=== PATIENT | male | born 1945 | race Hispanic/Latino ===

== ENCOUNTER 2022-08-13 23:45 | Emergency (ER) | payer OTHER ==
--- OUTSIDE RECORDS SUMMARY | 2022-08-13 23:49 | XMS REPORT | Continuity of Care Document ---
:1945 Author Organization [facility] t Address [address] [place] [address] [address] [place] [address] Care Team Providers Name Role Phone Ciro Ameya Marie Primary Care Physician Crista Farooq Attending Clinician Unavailable Sangita SUAREZ Attending Clinician Unavailable MARIA LUISA ZENDEJAS Attending Clinician Unavailable Maria Luisa Zendejas MD Attending Clinician Jefry Horowitz Attending Clinician Payers Payer Name Policy Type Policy Number Effective Date Expiration Date Emily matthewbc RUBINA/HE [id number] 2022 MEDICARE 00:00:00 ADVANTAGE MEDICARE MB [id number] [facility] MEDICARE C1 [id number] [facility] fabiana - [facility] HUMANA MEDICARE C1 [id number] [facility] [id number] [facility] fabiana [facility] Problems Condition Condition Condition Status Onset Resolution Last Treating Co mments Source Name Details Category Date Date Treatment Clinician Date Alzheimer' Alzheimer' Disease Active U nivers s disease s disease 07-30 ity of 00:00: [place] 00 Medical Branch Anxiety Anxiety Disease Active Univers 07-30 ity of 00:00: [place] 00 Medical Branch Gastroesop Gastroesop Disease Active 2023-0 U nivers hageal hageal 07-30 ity of reflux reflux 00:00: [place] disease disease 00 Medical without without Branch esophagiti esophagiti s s History of History of Disease Active U nivers malignant malignant 07-30 ity of neoplasm neoplasm 00:00: [place] of colon of colon 00 Medica l Branch Hyperlipid Hyperlipid Disease Active U nivers emjess emia 07-30 ity of 00:00: [place] 00 Medical Branch 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 07-30 it y of anemia, anemia, 00:00: [place] unspecifie unspecifie 00 Me dical d iron d iron Branch 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 00:00: [place] disease disease 00 Medical Branch Type 2 Type 2 Disease Active Univers diabetes diabetes 07-30 ity of mellitus mellitus 00:00: [place] without without 00 Medical complicati complicati Br anch on, on, without without long-term long-term current current use of use of insulin insulin Primary Primary Problem Active 2016-032022-05-23 Mn sudheer degenerati degenerati 0-13 14:35:59 l ve ve 00:00: [place] dementia dementia 00 of the of the Alzheimer Alzheimer type, type, senile senile onset onset (disorder) (disorder) Active 01/09/2017 Problem 05/23/2022 [facility] Hyperlipid Hyperlipi Problem Active 2022-05-23 Elisha emjess demia 11-28 14:35:59 l (disorder) (disorder) 00:00: He rmann Active 00 11/28/2016 Problem 05/23/2022 [facility] Type II Type II Problem Active 2022-05-23 Mn moria diabetes diabetes 11-28 14:35:59 l mellitus mellitus 00:00: [place] n without without 00 complicati complicati on on (disorder) (disorder) Active 11/28/2016 Problem 05/23/2022 [facility] Labile Labile Problem Active 2022-05-[address] [facility] affect affect 14:35:59 l (finding) (finding) Herm shiva Active Problem 05/23/2022 [facility] Insomnia Insomnia Problem Active 2022-05-23 Memoria (disorder) (disorder) 14:35:59 l Active [place] Problem 05/23/2022 [facility] Benign Colon Problem Common neoplasm polyps [facility] of colon - [facility] Hydrocele Hydrocele Problem Com mon [facility] Hypertensi HTN Problem Commo n on (hypertens Spirit ion) - [facility] Type 2 Diabetes Problem Common diabetes mellitus Spirit mellitus type II, - [facility] well controlled [facility] Anemia Anemia Problem [facility] Sexual Sexual Problem Common dysfunctio dysfunctio Sp fabiana n n - [facility] Spermatoce Spermatoce Problem C ommon le le of Spirit epididymis - [facility] Dementia Dementia Problem Commo n in other Spirit diseases - [facility] classified [facility] without Medical behavioral Center disturbanc e Allergic Allergic Problem Commo n rhinitis rhinitis, Spiri t [facility]specifie [facility] Center d trigger [id number] Type 2 Problem Common diabetes Spirit mellitus - [facility] with [facility] chronic Medical kidney Center disease [id number] Leukocytos Problem Co mmon is, Spirit unspecifie - CHI d type [facility] Allergies, Adverse Reactions, Alerts Allergy Allergy Status Severity Reaction(s) Onset Inactive Treating Comm ents Source Name Type Date Date Clinician PENICILL DRUG Active Unknown-Cmnt Un smiley IN INGREDI 07-30 ity of 00:00: [place] 00 Medical Branch Penicill Propensi Active Unknown - Uni vers in ty to See comments 07-30 ity of adverse 00:00: [place] reaction 00 Medical s Branch Penicill Penicill Active Unknown Commo n in in Spirit - [facility] amoxicil amoxicil Active Unknown Commo n tesfaye tesfaye [facility] penicill penicill Active Memori a ins ins l Kd Social History Social Habit Start Date Stop Date Quantity Comments Source History of Tobacco [facility] Use [facility] Exposure to 2022-07-20 2022-07-[address] [facility] SARS-CoV-2 (event) 00:00:00 20:55:00 Medica l Branch Sex Ass[birth year] At [birth year] [facility] 00:00:00 00:00:00 Medical Branch Smoking Status Start Date Stop Date Source Tobacco smoking [facility] xa consumption unknown Medical Bran Tobacco smoking status 2022-05-20 21:25:18 2022-05-20 Memor kae Ruizann 21:25:18 Never Smoker [facility] nter Medications Ordered Filled Start Stop Current Ordering Indication Dosage Frequency Signature Comments Components Source Medication Medication Date Date Medication? Clinician (SIG) Name Name cetirizine Yes 10mg Take 1 Unive rs 10 mg 5-03 tablet by ity of tablet 20:54: mouth in [place] [address] the Medical morning. Branch atorvastati Yes 20mg Take 1 Univ ers n 20 mg 5-03 tablet by ity of tablet 20:54: mouth at [place] [address] bedtime. Medical Branch memantine 0 Yes 10mg Take 1 Univer s 10 mg 5-03 tablet by ity of tablet 20:54: mouth in [place] [address] the Medical morning. Branch mirtazapine Yes 30mg Take 2 Univ ers 15 mg 5-03 tablets by ity of tablet 20:54: mouth at [place] [address] bedtime. Medical Branch pioglitazon Yes 30mg Take 1 Univ ers e 30 mg 5-03 tablet by ity of tablet 20:54: mouth in [place] [address] the Medical morning. Branch QUEtiapine 2022-0 Yes 50mg Take 1 Unive rs 50 mg 5-03 tablet by ity of tablet 20:54: mouth in [place] [address] the Medical morning Branch and 1 tablet in the evening. ferrous 2022-0 Yes 325mg Take 1 Univers sulfate 325 5-03 tablet by ity of mg (65 mg 20:54: mouth in [facility] iron) 21 the Medical tablet morning Branch and 1 tablet in the evening. donepeziL 2022-0 Yes 10mg Take 1 Univer s 10 mg 5-03 tablet by ity of tablet 20:54: mouth in [place] [address] the Medical morning. Branch lisinopriL 2022-0 Yes 2.5mg Take 1 Univ ers 2.5 mg 5-03 tablet by ity of tablet 20:54: mouth in [place] 21 the Medical morning. Branch mirtazapine 0 Yes 30 mg = 2 M emoria 15 mg oral 2-21 tab, PO, l tablet 22:24: Bedtime, # Ladan nn 00 60 tab, 2 Refill(s), Pharmacy: [facility] cy #[id number], 165.1, cm, 05/20/22 15:40:00 [employer] ADMINISTRATOR, Height, 55.909, kg, 05/20/22 15:40:00 COMMER[employer] PROPERTY ADMINISTRATOR, Weight mirtazapine 2022-0 Yes 30 mg = 2 M emoria 15 mg oral 2-21 tab, PO, l tablet 22:24: Bedtime, # Ladan nn 00 60 tab, 2 Refill(s), Pharmacy: [facility] #[id number], 165.1, cm, 05/20/22 15:40:00 COMMER[employer] PROPERTY ADMINISTRATOR, Height, 55.909, kg, 05/20/22 15:40:00 COMMERCIAL PROPERTY ADMINISTRATOR, Weight Namenda 10 2022-0 Yes 10 mg = 1 Me moria mg oral 2-21 tab, PO, l tablet 22:23: BID, # 60 [place] 00 tab, 3 Refill(s), Pharmacy: [facility] cy #[id number], 165.1, cm, 05/20/22 15:40:00 COMMERCIAL PROPERTY ADMINISTRATOR, Height, 55.909, kg, 05/20/22 15:40:00 COMMERCIAL PROPERTY ADMINISTRATOR, Weight Namenda 10 2022-0 Yes 10 mg = 1 Me moria mg oral 2-21 tab, PO, l tablet 22:23: BID, # 60 Kavon n 00 tab, 3 Refill(s), Pharmacy: [facility] cy #[id number], 165.1, cm, 05/20/22 15:40:00 COMMERCIAL PROPERTY ADMINISTRATOR, Height, 55.909, kg, 05/20/22 15:40:00 COMMERCIAL PROPERTY ADMINISTRATOR, Weight Aricept 10 2022-0 Yes 10 mg = 1 Me moria mg oral 2-21 tab, PO, l tablet 22:22: Daily, # [place] 00 30 tab, 3 Refill(s), Pharmacy: [facility] cy #[id number], 165.1, cm, 05/20/22 15:40:00 COMMERCIAL PROPERTY ADMINISTRATOR, Height, 55.909, kg, 05/20/22 15:40:00 COMMERCIAL PROPERTY ADMINISTRATOR, Weight Aricept 10 2022-0 Yes 10 mg = 1 Me moria mg oral 2-21 tab, PO, l tablet 22:22: Daily, # Kd 00 30 tab, 3 Refill(s), Pharmacy: [facility] #[id number], 165.1, cm, 05/20/22 15:40:00 COMMERCIAL PROPERTY ADMINISTRATOR, Height, 55.909, kg, 05/20/22 15:40:00 COMMERCIAL PROPERTY ADMINISTRATOR, Weight Depakote 0 Yes 500 mg = 1 Mem oria 500 mg oral 2-21 tab, PO, l enteric 22:21: Bedtime, # Herm shiva coated 00 30 tab, 3 tablet Refill(s), Pharmacy: [facility] #[id number], 165.1, cm, 05/20/22 15:40:00 COMMER[employer] PROPERTY ADMINISTRATOR, Height, 55.909, kg, 05/20/22 15:40:00 COMMERCIAL PROPERTY ADMINISTRATOR, Weight Depakote 0 Yes 500 mg = 1 Mem oria 500 mg oral 2-21 tab, PO, l enteric 22:21: Bedtime, # Herm shiva coated 00 30 tab, 3 tablet Refill(s), Pharmacy: [facility] #[id number], 165.1, cm, 05/20/22 15:40:00 COMMERCIAL PROPERTY ADMINISTRATOR, Height, 55.909, kg, 05/20/22 15:40:00 COMMERCIAL PROPERTY ADMINISTRATOR, Weight SEROquel 50 2021-03 Yes 50 mg = 1 M emoria mg oral 0-24 tab, PO, l tablet 18:37: BID, # 180 Ladan nn 00 tab, 3 Refill(s), Pharmacy: [facility] #[id number], 165.1, cm, 10/17/21 14:51:00 CDT, Height, 63.693, kg, 10/17/21 14:51:00 CDT, Weight SEROquel 50 2021-03 Yes 50 mg = 1 M emoria mg oral 0-24 tab, PO, l tablet 18:37: BID, # 180 Ladan nn 00 tab, 3 Refill(s), Pharmacy: [facility] #[id number], 165.1, cm, 10/17/21 14:51:00 CDT, Height, 63.693, kg, 10/17/21 14:51:00 CDT, Weight mirtazapine 0 Yes = 1 tab, Me moria 15 mg oral 7-21 PO, l tablet 20:51: Bedtime, # Ladan nn 00 90 tab, 2 Refill(s), Pharmacy: [facility] STORE [id number], 165.1, cm, 10/17/21 14:51:00 CDT, Height, 63.693, kg, 10/17/21 14:51:00 CDT, Weight mirtazapine 0 Yes = 1 tab, Me moria 15 mg oral 7-21 PO, l tablet 20:51: Bedtime, # [place] nn 00 90 tab, 2 Refill(s), Pharmacy: [facility] STORE [id number], 165.1, cm, 10/17/21 14:51:00 CDT, Height, 63.693, kg, 10/17/21 14:51:00 CDT, Weight Remeron 15 2021-0 No 15 mg = 1 Me moria mg oral 7-21 tab, PO, l tablet 20:05: Bedtime, # [place] nn 00 30 tab, 3 Refill(s), Pharmacy: [facility] #[id number], 165.1, cm, 10/17/21 14:51:00 CDT, Height, 63.693, kg, 10/17/21 14:51:00 CDT, Weight Remeron 15 2021-0 No 15 mg = 1 Me moria mg oral 7-21 tab, PO, l tablet 20:05: Bedtime, # [place] nn 00 30 tab, 3 Refill(s), Pharmacy: [facility] #[id number], 165.1, cm, 10/17/21 14:51:00 CDT, Height, 63.693, kg, 10/17/21 14:51:00 CDT, Weight Remeron 15 2021-0 No 15 mg = 1 Me moria mg oral 7-21 tab, PO, l tablet 20:05: Bedtime, # [place] nn 00 30 tab, 3 Refill(s), Pharmacy: [facility] #[id number], 165.1, cm, 10/17/21 14:51:00 CDT, Height, 63.693, kg, 10/17/21 14:51:00 CDT, Weight Depakote ER 2022-0 Yes 500 mg = 1 Memoria 500 mg oral 5-09 tab, PO, l tablet, 15:28: Bedtime, # Herm shiva extended 00 90 tab, 3 release Refill(s), Pharmacy: [facility] #[id number], 167.64, cm, 07/12/21 14:20:00 CDT, Height, 61.818, kg, 07/12/21 14:20:00 CDT, Weight Depakote ER 2022-0 Yes 500 mg = 1 Memoria 500 mg oral 5-09 tab, PO, l tablet, 15:28: Bedtime, # Herm shiva extended 00 90 tab, 3 release Refill(s), Pharmacy: [facility] #[id number], 167.64, cm, 07/12/21 14:20:00 CDT, Height, 61.818, kg, 07/12/21 14:20:00 CDT, Weight Depakote ER 2022-0 Yes 500 mg = 1 Memoria 500 mg oral 5-09 tab, PO, l tablet, 15:28: Bedtime, # Herm shiva extended 00 90 tab, 3 release Refill(s), Pharmacy: [facility] #[id number], 167.64, cm, 07/12/21 14:20:00 CDT, Height, 61.818, kg, 07/12/21 14:20:00 CDT, Weight Depakote ER 2022-0 Yes 500 mg = 1 Memoria 500 mg oral 4-15 tab, PO, l tablet, 22:50: Bedtime, # Herm shiva extended 00 30 tab, 3 release Refill(s), Pharmacy: [facility] #[id number], 167.64, cm, 07/12/21 14:20:00 CDT, Height, 61.818, kg, 07/12/21 14:20:00 CDT, Weight Depakote ER 2022-0 Yes 500 mg = 1 Memoria 500 mg oral 4-15 tab, PO, l tablet, 22:50: Bedtime, # Herm shiva extended 00 30 tab, 3 release Refill(s), Pharmacy: [facility] #[id number], 167.64, cm, 07/12/21 14:20:00 CDT, Height, 61.818, kg, 07/12/21 14:20:00 CDT, Weight Depakote ER 0 Yes 500 mg = 1 Memoria 500 mg oral 4-15 tab, PO, l tablet, 22:50: Bedtime, # Herm shiva extended 00 30 tab, 3 release Refill(s), Pharmacy: [facility] #[id number], 167.64, cm, 07/12/21 14:20:00 CDT, Height, 61.818, kg, 07/12/21 14:20:00 CDT, Weight SEROquel 50 0 No 50 mg = 1 M emoria mg oral 3-04 tab, PO, l tablet 17:53: BID, # 180 Ladan nn 00 tab, 3 Refill(s), Pharmacy: [facility] #[id number], 170.18, cm, 05/30/21 13:50:00 [employer] ADMINISTRATOR, Height, 61.818, kg, 05/30/21 13:50:00 COMMERCIAL PROPERTY ADMINISTRATOR, Weight SEROquel 50 0 No 50 mg = 1 M emoria mg oral 3-04 tab, PO, l tablet 17:53: BID, # 180 Ladan nn 00 tab, 3 Refill(s), Pharmacy: [facility] #[id number], 170.18, cm, 05/30/21 13:50:00 COMMERCIAL PROPERTY ADMINISTRATOR, Height, 61.818, kg, 05/30/21 13:50:00 COMMERCIAL PROPERTY ADMINISTRATOR, Weight SEROquel 50 2021-0 No 50 mg = 1 M emoria mg oral 3-04 tab, PO, l tablet 17:53: BID, # 180 Ladan nn 00 tab, 3 Refill(s), Pharmacy: [facility] #[id number], 170.18, cm, 05/30/21 13:50:00 COMMERCIAL PROPERTY ADMINISTRATOR, Height, 61.818, kg, 05/30/21 13:50:00 COMMERCIAL PROPERTY ADMINISTRATOR, Weight quetiapine 0 No 50 mg = 1 Me moria 50 MG Oral 3-03 tab, PO, l Tablet 20:14: BID, X 30 Kavon n [Seroquel] 00 day, # 60 tab, 2 Refill(s), Pharmacy: [facility] #[id number], 170.18, cm, 05/30/21 13:50:00 COMMERCIAL PROPERTY ADMINISTRATOR, Height, 61.818, kg, 05/30/21 13:50:00 COMMERCIAL PROPERTY ADMINISTRATOR, Weight quetiapine 2021-0 No 50 mg = 1 Me moria 50 MG Oral 3-03 tab, PO, l Tablet 20:14: BID, X 30 [place] n [Seroquel] 00 day, # 60 tab, 2 Refill(s), Pharmacy: [facility] #[id number], 170.18, cm, 05/30/21 13:50:00 COMMERCIAL PROPERTY ADMINISTRATOR, Height, 61.818, kg, 05/30/21 13:50:00 COMMERCIAL PROPERTY ADMINISTRATOR, Weight quetiapine 2021-0 No 50 mg = 1 Me moria 50 MG Oral 3-03 tab, PO, l Tablet 20:14: BID, X 30 [place] n [Seroquel] 00 day, # 60 tab, 2 Refill(s), Pharmacy: [facility] #[id number], 170.18, cm, 05/30/21 13:50:00 COMMERCIAL PROPERTY ADMINISTRATOR, Height, 61.818, kg, 05/30/21 13:50:00 COMMERCIAL PROPERTY ADMINISTRATOR, Weight quetiapine 2021-0 No 50 mg = 1 Me moria 50 MG Oral 2-10 tab, PO, l Tablet 16:26: Bedtime, # Ladan nn [Seroquel] 00 30 tab, 2 Refill(s), Pharmacy: [facility] #[id number], 165.1, cm, 03/13/21 14:42:00 COMMERCIAL PROPERTY ADMINISTRATOR, Height, 61.818, kg, 03/13/21 14:42:00 COMMERCIAL PROPERTY ADMINISTRATOR, Weight quetiapine 2021-0 No 50 mg = 1 Me moria 50 MG Oral 2-10 tab, PO, l Tablet 16:26: Bedtime, # Ladan nn [Seroquel] 00 30 tab, 2 Refill(s), Pharmacy: [facility] #[id number], 165.1, cm, 03/13/21 14:42:00 COMMERCIAL PROPERTY ADMINISTRATOR, Height, 61.818, kg, 03/13/21 14:42:00 COMMERCIAL PROPERTY ADMINISTRATOR, Weight quetiapine 2-0 No 50 mg = 1 Me moria 50 MG Oral 2-10 tab, PO, l Tablet 16:26: Bedtime, # Ladan nn [Seroquel] 00 30 tab, 2 Refill(s), Pharmacy: [facility] #[id number], 165.1, cm, 03/13/21 14:42:00 COMMERCIAL PROPERTY ADMINISTRATOR, Height, 61.818, kg, 03/13/21 14:42:00 COMMERCIAL PROPERTY ADMINISTRATOR, Weight Mirtazapine 2020-03 Yes 15 mg = 1 M emoria 15 MG Oral 2-15 tab, PO, l Tablet 21:11: Bedtime, # Ladan leary [Remeron] 00 90 tab, 2 Refill(s), Pharmacy: [facility] #[id number], 165.1, cm, 03/13/21 14:42:00 COMMERCIAL PROPERTY ADMINISTRATOR, Height, 61.818, kg, 03/13/21 14:42:00 COMMERCIAL PROPERTY ADMINISTRATOR, Weight Mirtazapine 2020-03 Yes 15 mg = 1 M emoria 15 MG Oral 2-15 tab, PO, l Tablet 21:11: Bedtime, Kacey leary [Remeron] 00 90 tab, 2 Refill(s), Pharmacy: [facility] #[id number], 165.1, cm, 03/13/21 14:42:00 COMMERCIAL PROPERTY ADMINISTRATOR, Height, 61.818, kg, 03/13/21 14:42:00 COMMERCIAL PROPERTY ADMINISTRATOR, Weight Mirtazapine 2020-03 Yes 15 mg = 1 M emoria 15 MG Oral 2-15 tab, PO, l Tablet 21:11: Bedtime, Kacey leary [Remeron] 00 90 tab, 2 Refill(s), Pharmacy: [facility] #[id number], 165.1, cm, 03/13/21 14:42:00 COMMERCIAL PROPERTY ADMINISTRATOR, Height, 61.818, kg, 03/13/21 14:42:00 COMMERCIAL PROPERTY ADMINISTRATOR, Weight Namzaric 28 2020-03 Yes 1 cap, PO, Memoria mg-10 mg 2-15 Daily, # l oral 21:00: 90 cap, 3 Kd capsule, 00 Refill(s), extended Pharmacy: release [facility] #[id number], 165.1, cm, 03/13/21 14:42:00 COMMERCIAL PROPERTY ADMINISTRATOR, Height, 61.818, kg, 03/13/21 14:42:00 COMMERCIAL PROPERTY ADMINISTRATOR, Weight Dextrometho 2020-03 Yes 1 cap, PO, Memoria rphan 2-15 Q12H, # l Hydrobromid 21:00: 180 cap, 1 Kd e 20 MG / 00 Refill(s), Quinidine Pharmacy: Sulfate [facility] #[id number], Capsule 165.1, cm, [Nuedexta] 03/13/21 14:42:00 COMMERCIAL PROPERTY ADMINISTRATOR, Height, 61.818, kg, 03/13/21 14:42:00 COMMERCIAL PROPERTY ADMINISTRATOR, Weight 24 HR 2020-03 Yes 1 cap, PO, Memori a Donepezil 2-15 Daily, # l hydrochlori 21:00: 90 cap, 3 H ermann de 10 MG / 00 Refill(s), Memantine Pharmacy: hydrochlori [facility] 28 [facility] #[id number], Extended 165.1, cm, Release 03/13/21 Oral 14:42:00 Capsule COMM[employer] ADMINISTRATOR, [Namzaric] Height, 61.818, kg, 03/13/21 14:42:00 COMMERCIAL PROPERTY ADMINISTRATOR, Weight Sertraline 2020-03 Yes 50 mg = 1 Me moria 50 MG Oral 2-15 tab, PO, l Tablet 21:00: Daily, # [place] [Zoloft] 00 90 tab, 3 Refill(s), Pharmacy: [id number], 165.1, cm, 03/13/21 14:42:00 COMMERCIAL PROPERTY ADMINISTRATOR, Height, 61.818, kg, 03/13/21 14:42:00 COMMERCIAL PROPERTY ADMINISTRATOR, Weight Namzaric 28 2020-03 Yes 1 cap, PO, Memoria mg-10 mg 2-15 Daily, # l oral 21:00: 90 cap, 3 [place] capsule, 00 Refill(s), extended Pharmacy: release [id number], 165.1, cm, 03/13/21 14:42:00 COMMERCIAL PROPERTY ADMINISTRATOR, Height, 61.818, kg, 03/13/21 14:42:00 COMMERCIAL PROPERTY ADMINISTRATOR, Weight Dextrometho 2020-03 Yes 1 cap, PO, Memoria rphan 2-15 Q12H, # l Hydrobromid 21:00: 180 cap, 1 [place] e 20 MG / 00 Refill(s), Quinidine Pharmacy: S[facility] #[id number], Capsule 165.1, cm, [Nuedexta] 03/13/21 14:42:00 COMMERCIAL PROPERTY ADMINISTRATOR, Height, 61.818, kg, 03/13/21 14:42:00 COMMERCIAL PROPERTY ADMINISTRATOR, Weight 24 HR 2020-03 Yes 1 cap, PO, Memori a Donepezil 2-15 Daily, # l hydrochlori 21:00: 90 cap, 3 H ermann de 10 MG / 00 Refill(s), Memantine Pharmacy: hydrochlori [facility] 28 [facility] #[id number], Extended 165.1, cm, Release 03/13/21 Oral 14:42:00 Capsule COMM[employer]ERTY ADMINISTRATOR, [Namzaric] Height, 61.818, kg, 03/13/21 14:42:00 COMMERCIAL PROPERTY ADMINISTRATOR, Weight Sertraline 2020-03 Yes 50 mg = 1 Me moria 50 MG Oral 2-15 tab, PO, l Tablet 21:00: Daily, # [place] [Zoloft] 00 90 tab, 3 Refill(s), Pharmacy: [id number], 165.1, cm, 03/13/21 14:42:00 COMMERCIAL PROPERTY ADMINISTRATOR, Height, 61.818, kg, 03/13/21 14:42:00 COMMERCIAL PROPERTY ADMINISTRATOR, Weight Dextrometho 2020-03 Yes 1 cap, PO, Memoria rphan 2-15 Q12H, # l Hydrobromid 21:00: 180 cap, 1 Kd e 20 MG / 00 Refill(s), Quinidine Pharmacy: S[facility] #[id number], Capsule 165.1, cm, [Nuedexta] 03/13/21 14:42:00 COMMERCIAL PROPERTY ADMINISTRATOR, Height, 61.818, kg, 03/13/21 14:42:00 COMMERCIAL PROPERTY ADMINISTRATOR, Weight 24 HR 2020-03 Yes 1 cap, PO, Memori a Donepezil 2-15 Daily, # l hydrochlori 21:00: 90 cap, 3 H ermann de 10 MG / 00 Refill(s), Memantine Pharmacy: hydrochlori [facility] 28 [facility] #[id number], Extended 165.1, cm, Release 03/13/21 Oral 14:42:00 Capsule COMMER[employer] PROPERTY ADMINISTRATOR, [Namzaric] Height, 61.818, kg, 03/13/21 14:42:00 COMMERCIAL PROPERTY ADMINISTRATOR, Weight Sertraline 2020-03 Yes 50 mg = 1 Me moria 50 MG Oral 2-15 tab, PO, l Tablet 21:00: Daily, # Kd [Zoloft] 00 90 tab, 3 Refill(s), Pharmacy: [facility] #[id number], 165.1, cm, 03/13/21 14:42:00 COMMERCIAL PROPERTY ADMINISTRATOR, Height, 61.818, kg, 03/13/21 14:42:00 COMMERCIAL PROPERTY ADMINISTRATOR, Weight Sertraline 1-0 Yes 25 mg = 1 Me moria 25 MG Oral 6-09 tab, PO, l Tablet 16:19: Daily, # Kd [Zoloft] 00 90 tab, 3 Refill(s), Pharmacy: [facility] #[id number], 167.64, cm, 08/08/20 16:03:00 CDT, Height, 67.273, kg, 08/08/20 16:03:00 CDT, Weight Sertraline 1-0 Yes 25 mg = 1 Me moria 25 MG Oral 6-09 tab, PO, l Tablet 16:19: Daily, # Kd [Zoloft] 00 90 tab, 3 Refill(s), Pharmacy: [facility] #[id number], 167.64, cm, 08/08/20 16:03:00 CDT, Height, 67.273, kg, 08/08/20 16:03:00 CDT, Weight Sertraline 1-0 Yes 25 mg = 1 Me moria 25 MG Oral 6-09 tab, PO, l Tablet 16:19: Daily, # Kd [Zoloft] 00 90 tab, 3 Refill(s), Pharmacy: [facility] #[id number], 167.64, cm, 08/08/20 16:03:00 CDT, Height, 67.273, kg, 08/08/20 16:03:00 CDT, Weight Sertraline 2021-0 Yes 25 mg = 1 Me moria 25 MG Oral 5-12 tab, PO, l Tablet 21:47: Daily, # Kd [Zoloft] 00 30 tab, 4 Refill(s), Pharmacy: [facility] #[id number], 167.64, cm, 08/08/20 16:03:00 CDT, Height, 67.273, kg, 08/08/20 16:03:00 CDT, Weight Sertraline 2021-0 Yes 25 mg = 1 Me moria 25 MG Oral 5-12 tab, PO, l Tablet 21:47: Daily, # [place] [Zoloft] 00 30 tab, 4 Refill(s), Pharmacy: [id number], 167.64, cm, 08/08/20 16:03:00 CDT, Height, 67.273, kg, 08/08/20 16:03:00 CDT, Weight Sertraline 2020-0 Yes 25 mg = 1 Me moria 25 MG Oral 5-12 tab, PO, l Tablet 21:47: Daily, # Kd [Zoloft] 00 30 tab, 4 Refill(s), Pharmacy: [id number], 167.64, cm, 08/08/20 16:03:00 CDT, Height, 67.273, kg, 08/08/20 16:03:00 CDT, Weight Dextrometho 2020-0 Yes 1 cap, PO, Memoria rphan 5-12 Q12H, # l Hydrobromid 21:43: 180 cap, 1 [place] e 20 MG / 00 Refill(s), Quinidine Pharmacy: [facility] #[id number], Capsule 167.64, [Nuedexta] cm, 08/08/20 16:03:00 CDT, Height, 67.273, kg, 08/08/20 16:03:00 CDT, Weight Dextrometho 2020-0 Yes 1 cap, PO, Memoria rphan 5-12 Q12H, # l Hydrobromid 21:43: 180 cap, 1 [place] e 20 MG / 00 Refill(s), [facility]: Sulfate [facility] MG Oral cy #[id number], Capsule 167.64, [Nuedexta] cm, 08/08/20 16:03:00 CDT, Height, 67.273, kg, 08/08/20 16:03:00 CDT, Weight Dextrometho 2020-0 Yes 1 cap, PO, Memoria rphan 5-12 Q12H, # l Hydrobromid 21:43: 180 cap, 1 [place] e 20 MG / 00 Refill(s), [facility]: Sulfate [facility] MG Oral cy #[id number], Capsule 167.64, [Nuedexta] cm, 08/08/20 16:03:00 CDT, Height, 67.273, kg, 08/08/20 16:03:00 CDT, Weight Cetirizine Cetirizine 2019-03 No 1{table Cetirizine HCl 10 MG HCl 10 MG 2-11 t} HCl 10 MG 00:00: 00 Cetirizine Cetirizine 2019-03 No 1{table Cetirizine HCl 10 MG HCl 10 MG 2-11 t} HCl 10 MG 00:00: 00 QUEtiapine QUEtiapine 2019-03 No 1{table QD QUEtiapine Fumarate ER Fumarate ER 2-11 t_in_th Fumarate 50 MG 50 MG 00:00: e_eveni ER 50 MG 00 ng} Cetirizine Cetirizine 2019-03 No 1{table Cetirizine HCl 10 MG HCl 10 MG 2-11 t} HCl 10 MG 00:00: 00 Cetirizine Cetirizine 2019-03 No 1{table Cetirizine HCl 10 MG HCl 10 MG 2-11 t} HCl 10 MG 00:00: 00 Cetirizine Cetirizine 2019-03 No 1{table Cetirizine HCl 10 MG HCl 10 MG 2-11 t} HCl 10 MG 00:00: 00 Dextrometho Yes 1 cap, PO, Memoria rphan 9-25 Q12H, # l Hydrobromid 20:12: 180 cap, 1 [place] e 20 MG / 00 Refill(s), [facility]: Sulfate [facility], Capsule 172.72, [Nuedexta] cm, 12/23/19 14:40:00 CDT, Height, 62.727, kg, 12/23/19 14:40:00 CDT, Weight 24 HR Yes 1 cap, PO, Memori a Donepezil 9-25 Daily, # l hydrochlori 20:12: 90 cap, 3 H [place] de 10 MG / 00 Refill(s), [facility]: hydrochlori [facility] de 28 MG cy #6767, Extended 172.72, Release cm, Oral 12/23/19 Capsule 14:40:00 [Namzaric] CDT, Height, 62.727, kg, 12/23/19 14:40:00 CDT, Weight Dextrometho 2020-0 Yes 1 cap, PO, Memoria rphan 9-25 Q12H, # l Hydrobromid 20:12: 180 cap, 1 [place] e 20 MG / 00 Refill(s), [facility]: Sulfate 10 [facility] MG Oral [facility] #[id number], Capsule 172.72, [Nuedexta] cm, 12/23/19 14:40:00 CDT, Height, 62.727, kg, 12/23/19 14:40:00 CDT, Weight 24 HR 2020-0 Yes 1 cap, PO, Memori a Donepezil 9-25 Daily, # l hydrochlori 20:12: 90 cap, 3 H [place] de 10 MG / 00 Refill(s), [facility]: hydrochlori [facility] de 28 MG cy #[id number], Extended 172.72, Release cm, Oral 12/23/19 Capsule 14:40:00 [Namzaric] CDT, Height, 62.727, kg, 12/23/19 14:40:00 CDT, Weight Dextrometho 2020-0 Yes 1 cap, PO, Memoria rphan 9-25 Q12H, # l Hydrobromid 20:12: 180 cap, 1 [place] e 20 MG / 00 Refill(s), [facility]: Sulfate 10 [facility] MG Oral [facility] #[id number], Capsule 172.72, [Nuedexta] cm, 12/23/19 14:40:00 CDT, Height, 62.727, kg, 12/23/19 14:40:00 CDT, Weight 24 HR 2020-0 Yes 1 cap, PO, Memori a Donepezil 9-25 Daily, # l hydrochlori 20:12: 90 cap, 3 [place] de 10 MG / 00 Refill(s), [facility]: hydrochlori [facility] 28 MG cy #[id number], Extended 172.72, Release cm, Oral 12/23/19 Capsule 14:40:00 [Namzaric] CDT, Height, 62.727, kg, 12/23/19 14:40:00 CDT, Weight 24 HR 2019-1 Yes 1 cap, PO, Memori a Donepezil 0-09 Daily, # l hydrochlori 19:44: 90 cap, 3 H [place] de 10 MG / 00 Refill(s), [facility]: hydrochlori [facility] 28 MG cy #[id number] Extended Release Oral Capsule [Namzaric] 2018-03 Yes 1 cap, PO, Memori a Donepezil 0-09 Daily, # l hydrochlori 19:44: 90 cap, 3 H [place] de 10 MG / 00 Refill(s), [facility]: hydrochlori [facility] de 28 MG cy #[id number] Extended Release Oral Capsule [Namzaric] 2018-03 Yes 1 cap, PO, Memori a Donepezil 0-09 Daily, # l hydrochlori 19:44: 90 cap, 3 H [place] de 10 MG / 00 Refill(s), [facility]: hydrochlori [facility] de 28 MG cy #[id number] Extended Release Oral Capsule [Namzaric] Dextrometho 2018-03 Yes 1 cap, PO, Memoria rphan 0-09 Q12H, # 60 l Hydrobromid 19:43: cap, 3 Herm shiva e 20 MG / 59 Refill(s), [facility]: Sulfate 10 [facility] MG Oral [facility] #[id number] Capsule [Nuedexta] Dextrometho 2018-03 Yes 1 cap, PO, Memoria rphan 0-09 Q12H, # 60 l Hydrobromid 19:43: cap, 3 Herm shiva e 20 MG / 59 Refill(s), [facility]: Sulfate 10 [facility] MG Oral [facility] #[id number] Capsule [Nuedexta] Dextrometho 2018-03 Yes 1 cap, PO, Memoria rphan 0-09 Q12H, # 60 l Hydrobromid 19:43: cap, 3 Herm shiva e 20 MG / 59 Refill(s), [facility]: Sulfate 10 [facility] MG Oral [facility] #[id number] Capsule [Nuedexta] Dextrometho 2018- Yes = 1 cap, Me moria rphan 5-23 PO, Q12H, l Hydrobromid 00:05: # 60 [place] e 20 MG / 06 unknown Quinidine unit, Sulfate 10 Refill(s) MG Oral 3, Capsule Pharmacy: [[facility]] [id number] Dextrometho 2019-0 Yes = 1 cap, Me moria rphan 5-23 PO, Q12H, l Hydrobromid 00:05: # 60 [place] e 20 MG / 06 unknown Quinidine unit, Sulfate 10 Refill(s) MG Oral 3, Capsule Pharmacy: [[facility]] [id number] Dextrometho Yes = 1 cap, Me moria rphan 5-23 PO, Q12H, l Hydrobromid 00:05: # 60 [place] n e 20 MG / 06 unknown Quinidine unit, Sulfate 10 Refill(s) MG Oral 3, Capsule Pharmacy: [Nued[facility]] [id number] Dextrometho No 1 cap, PO, Memoria rphan 1-28 Q12H, # 60 l Hydrobromid 16:38: cap, 3 Herm shiva e 20 MG / 00 Refill(s), [facility]: Sulfate 10 [facility] MG Oral [facility] #[id number] Capsule [Nuedexta] Dextrometho No 1 cap, PO, Memoria rphan 28 Q12H, # 60 l Hydrobromid 16:38: cap, 3 Herm shiva e 20 MG / 00 Refill(s), [facility]: Sulfate 10 [facility] MG Oral [facility] #[id number] Capsule [Nuedexta] Dextrometho No 1 cap, PO, Memoria rphan -28 Q12H, # 60 l Hydrobromid 16:38: cap, 3 Herm shiva e 20 MG / 00 Refill(s), [facility]: Sulf[facility] 10 [facility] MG Oral [facility] #[id number] Capsule [Nuedexta] Ferrous Ferrous Yes Kristi 1 tablet Co mmon Sulfate Sulfate 7-30 [place] [facility] - [facility] Aspirin Yes 81 mg = 1 Memor ia Enteric -09 tab, PO, l Coated 81 19:52: Daily, 0 Herm shiva mg oral 00 Refill(s) delayed release tablet atorvastati Yes 20 mg = 1 M emoria n 20 mg -09 tab, PO, l oral tablet 19:52: Daily, 0 He r[place] 00 Refill(s) pioglitazon Yes 30 mg = 1 M emoria e 30 mg 3-09 tab, PO, l oral tablet 19:52: Daily, 0 He rmann 00 Refill(s) Aspirin Yes 81 mg = 1 Memor ia Enteric 3-09 tab, PO, l Coated 81 19:52: Daily, 0 Herm shiva mg oral 00 Refill(s) delayed release tablet atorvastati Yes 20 mg = 1 M emoria n 20 mg 3-09 tab, PO, l oral tablet 19:52: Daily, 0 He rmann 00 Refill(s) pioglitazon Yes 30 mg = 1 M emoria e 30 mg 3-09 tab, PO, l oral tablet 19:52: Daily, 0 He rmann 00 Refill(s) Namzaric Namzaric Yes Kristi 1 capsule C [facility]mon [place] [facility] - Yes Kristi 1 tablet Co mmon [facility] Viagra Viagra Yes Kristi 1 tablet [facility] [place] [facility] Lipitor Lipitor Yes Kristi 1 tablet Comm on [facility] Pioglitazon Pioglitazon Yes Kristi 1 tablet Common e HCl e HCl [facility] OneTouch OneTouch Yes Kristi as Common Ultra Test Ultra Test [facility] directed [facility] Nuedexta Nuedexta Yes Kristi 1 capsule C ommon [facility] OneTouch OneTouch Yes Kristi as Common Delica Delica [facility] directed Spi rit Lancets Lancets [facility] Fine Fine [facility] Vitamin C Vitamin C Yes Kristi as Comm on Plus Plus [facility] directed [facility] Lisinopril Lisinopril Yes Kristi 1 tablet Common [facility] Melatonin Melatonin Yes Kristi as Comm on ER ER [facility] Vitamin B12 Vitamin B12 Yes Kristi 1 tablet Common [facility] Aspir-81 81 Aspir-81 81 No 1{table QD Aspir-81 MG MG t} 81 MG Melatonin Melatonin No Melatonin ER 10 MG ER 10 MG ER 10 MG Vitamin B12 Vitamin B12 No 1{table QD Vitamin 1000 MCG 1000 MCG t} B12 1000 MCG Vitamin C Vitamin C No Vitamin C Plus 500 MG Plus 500 MG Plus 500 MG OneTouch OneTouch No BID OneTouch Delica Delica Delica Lancets Lancets Lancets Fine - Fine - Fine - Lipitor 20 Lipitor 20 No 1{table QD Lipitor 20 MG MG t} MG Atorvastati Atorvastati No Atorvastat n Calcium n Calcium in Calcium 20 MG 20 MG 20 MG Ferrous Ferrous No Ferrous Sulfate 325 Sulfate 325 Sulfate (65 Fe) MG (65 Fe) MG 325 (65 Fe) MG OneTouch OneTouch No BID OneTouch Delica Delica Delica Lancets Lancets Lancets Fine - Fine - Fine - OneTouch OneTouch No OneTouch Ultra - Ultra - Ultra - Vitamin C Vitamin C No Vitamin C Plus 500 MG Plus 500 MG Plus 500 MG Namzaric Namzaric No 1{capsu QD Namzaric 28-10 MG 28-10 MG le_in_t 28-10 MG he_even ing} Atorvastati Atorvastati No QD Atorvastat n Calcium n Calcium in Calcium 20 MG 20 MG 20 MG Vitamin B12 Vitamin B12 No 1{table QD Vitamin 1000 MCG 1000 MCG t} B12 1000 MCG Viagra 100 Viagra 100 No 1{table QD Viagra 100 MG MG t_as_ne MG eded} Lisinopril Lisinopril No 1{table QD Lisinopril 2.5 MG 2.5 MG t} 2.5 MG QUEtiapine QUEtiapine No QUEtiapine Fumarate ER Fumarate ER Fumarate 50 MG 50 MG ER 50 MG Nuedexta Nuedexta No 1{capsu BID Nuedexta 20-10 MG 20-10 MG le} 20-10 MG Ferrous Ferrous No Ferrous Sulfate 325 Sulfate 325 Sulfate (65 Fe) MG (65 Fe) MG 325 (65 Fe) MG Melatonin Melatonin No Melatonin ER 10 MG ER 10 MG ER 10 MG Aspir-81 81 Aspir-81 81 No 1{table QD Aspir-81 MG MG t} 81 MG Lipitor 20 Lipitor 20 No 1{table QD Lipitor 20 MG MG t} MG Pioglitazon Pioglitazon No Pioglitazo e HCl 30 MG e HCl 30 MG ne HCl 30 MG OneTouch OneTouch No BID OneTouch Delica Delica Delica Lancets Lancets Lancets Fine - Fine - Fine - OneTouch OneTouch No OneTouch Ultra - Ultra - Ultra - Vitamin C Vitamin C No Vitamin C Plus 500 MG Plus 500 MG Plus 500 MG Namzaric Namzaric No 1{capsu QD Namzaric 28-10 MG 28-10 MG le_in_t 28-10 MG he_even ing} Atorvastati Atorvastati No QD Atorvastat n Calcium n Calcium in Calcium 20 MG 20 MG 20 MG Vitamin B12 Vitamin B12 No 1{table QD Vitamin 1000 MCG 1000 MCG t} B12 1000 MCG Viagra 100 Viagra 100 No 1{table QD Viagra 100 MG MG t_as_ne MG eded} Lisinopril Lisinopril No 1{table QD Lisinopril 2.5 MG 2.5 MG t} 2.5 MG QUEtiapine QUEtiapine No QUEtiapine Fumarate ER Fumarate ER Fumarate 50 MG 50 MG ER 50 MG Nuedexta Nuedexta No 1{capsu BID Nuedexta 20-10 MG 20-10 MG le} 20-10 MG Ferrous Ferrous No Ferrous Sulfate 325 Sulfate 325 Sulfate (65 Fe) MG (65 Fe) MG 325 (65 Fe) MG Melatonin Melatonin No Melatonin ER 10 MG ER 10 MG ER 10 MG Aspir-81 81 Aspir-81 81 No 1{table QD Aspir-81 MG MG t} 81 MG Lipitor 20 Lipitor 20 No 1{table QD Lipitor 20 MG MG t} MG Pioglitazon Pioglitazon No Pioglitazo e HCl 30 MG e HCl 30 MG ne HCl 30 MG Vitamin B12 Vitamin B12 No 1{table QD Vitamin 1000 MCG 1000 MCG t} B12 1000 MCG Viagra 100 Viagra 100 No 1{table QD Viagra 100 MG MG t_as_ne MG eded} Lisinopril Lisinopril No Lisinopril 2.5 MG 2.5 MG 2.5 MG Atorvastati Atorvastati No QD Atorvastat n Calcium n Calcium in Calcium 20 MG 20 MG 20 MG Ferrous Ferrous No Ferrous Sulfate 325 Sulfate 325 Sulfate (65 Fe) MG (65 Fe) MG 325 (65 Fe) MG Lipitor 20 Lipitor 20 No 1{table QD Lipitor 20 MG MG t} MG Pioglitazon Pioglitazon No Pioglitazo e HCl 30 MG e HCl 30 MG ne HCl 30 MG OneTouch OneTouch No OneTouch Ultra - Ultra - Ultra - Melatonin Melatonin No Melatonin ER 10 MG ER 10 MG ER 10 MG Cetirizine Cetirizine No Cetirizine HCl 10 MG HCl 10 MG HCl 10 MG Nuedexta Nuedexta No 1{capsu BID Nuedexta 20-10 MG 20-10 MG le} 20-10 MG QUEtiapine QUEtiapine No 1{table QD QUEtiapine Fumarate ER Fumarate ER t_in_th Fumarate 50 MG 50 MG e_eveni ER 50 MG ng} Aspir-81 81 Aspir-81 81 No 1{table QD Aspir-81 MG MG t} 81 MG OneTouch OneTouch No BID OneTouch Delica Delica Delica Lancets Lancets Lancets Fine - Fine - Fine - Namzaric Namzaric No 1{capsu QD Namzaric 28-10 MG 28-10 MG le_in_t 28-10 MG he_even ing} Vitamin C Vitamin C No Vitamin C Plus 500 MG Plus 500 MG Plus 500 MG Lipitor 20 Lipitor 20 No 1{table QD Lipitor 20 MG MG t} MG QUEtiapine QUEtiapine No QUEtiapine Fumarate ER Fumarate ER Fumarate 50 MG 50 MG ER 50 MG OneTouch OneTouch No BID OneTouch Delica Delica Delica Lancets Lancets Lancets Fine - Fine - Fine - Ferrous Ferrous No 1{table BID Ferrous Sulfate 325 Sulfate 325 t} Sulfate (65 Fe) MG (65 Fe) MG 325 (65 Fe) MG Aspir-81 81 Aspir-81 81 No 1{table QD Aspir-81 MG MG t} 81 MG Pioglitazon Pioglitazon No Pioglitazo e HCl 30 MG e HCl 30 MG ne HCl 30 MG Vitamin B12 Vitamin B12 No 1{table QD Vitamin 1000 MCG 1000 MCG t} B12 1000 MCG Nuedexta Nuedexta No 1{capsu BID Nuedexta 20-10 MG 20-10 MG le} 20-10 MG Lipitor 20 Lipitor 20 No 1{table QD Lipitor 20 MG MG t} MG OneTouch OneTouch No BID OneTouch Ultra Test Ultra Test Ultra Test - - - Vitamin C Vitamin C No Vitamin C Plus 500 MG Plus 500 MG Plus 500 MG Melatonin Melatonin No Melatonin ER 10 MG ER 10 MG ER 10 MG Namzaric Namzaric No 1{capsu QD Namzaric 28-10 MG 28-10 MG le_in_t 28-10 MG he_even ing} Viagra 100 Viagra 100 No 1{table QD Viagra 100 MG MG t_as_ne MG eded} Lisinopril Lisinopril No 1{table QD Lisinopril 2.5 MG 2.5 MG t} 2.5 MG Atorvastati Atorvastati No Atorvastat n Calcium n Calcium in Calcium 20 MG 20 MG 20 MG QUEtiapine QUEtiapine No QUEtiapine Fumarate ER Fumarate ER Fumarate 50 MG 50 MG ER 50 MG OneTouch OneTouch No BID OneTouch Ultra Test Ultra Test Ultra Test - - - Vitamin C Vitamin C No Vitamin C Plus 500 MG Plus 500 MG Plus 500 MG Vitamin B12 Vitamin B12 No 1{table QD Vitamin 1000 MCG 1000 MCG t} B12 1000 MCG Aspir-81 81 Aspir-81 81 No 1{table QD Aspir-81 MG MG t} 81 MG Pioglitazon Pioglitazon No Pioglitazo e HCl 30 MG e HCl 30 MG ne HCl 30 MG Lipitor 20 Lipitor 20 No 1{table QD Lipitor 20 MG MG t} MG Viagra 100 Viagra 100 No 1{table QD Viagra 100 MG MG t_as_ne MG eded} OneTouch OneTouch No BID OneTouch Delica Delica Delica Lancets Lancets Lancets Fine - Fine - Fine - Melatonin Melatonin No Melatonin ER 10 MG ER 10 MG ER 10 MG Lisinopril Lisinopril No 1{table QD Lisinopril 2.5 MG 2.5 MG t} 2.5 MG Nuedexta Nuedexta No 1{capsu BID Nuedexta 20-10 MG 20-10 MG le} 20-10 MG Ferrous Ferrous No Ferrous Sulfate 325 Sulfate 325 Sulfate (65 Fe) MG (65 Fe) MG 325 (65 Fe) MG Namzaric Namzaric No 1{capsu QD Namzaric 28-10 MG 28-10 MG le_in_t 28-10 MG he_even ing} Namzaric Namzaric No 1{capsu QD Namzaric 28-10 MG 28-10 MG le_in_t 28-10 MG he_even ing} Nuedexta Nuedexta No 1{capsu BID Nuedexta 20-10 MG 20-10 MG le} 20-10 MG QUEtiapine QUEtiapine No QUEtiapine Fumarate ER Fumarate ER Fumarate 50 MG 50 MG ER 50 MG Viagra 100 Viagra 100 No 1{table QD Viagra 100 MG MG t_as_ne MG eded} Lisinopril Lisinopril No 1{table QD Lisinopril 2.5 MG 2.5 MG t} 2.5 MG OneTouch OneTouch No BID OneTouch Ultra Test Ultra Test Ultra Test - - - Pioglitazon Pioglitazon No Pioglitazo e HCl 30 MG e HCl 30 MG ne HCl 30 MG Immunizations Ordered Immunization Filled Immunization Date Status Commen ts Source Name Name FLUZONE HIGH DOSE FLUZONE HIGH DOSE 2022-02-28 [facility]pleted [facility] - OVER [facility] OVER 65 16:45:00 [facility] Hx influenza 2021-05-09 Completed [facility]-unspecified 00:00:00 [facility] Hx influenza 2021-05-09 Completed [facility] vaccine-unspecified 00:00:00 [facility] Hx influenza 2021-05-09 Completed [facility] vaccine-unspecified 00:00:00 [place] [facility] Moderna COVID-19 Moderna COVID-19 2020-09-21 Completed [facility] - Vaccine Vaccine 09:02:00 [facility] Moderna COVID-19 Moderna COVID-19 2020-09-21 Completed [facility] - Vaccine Vaccine 09:02:00 [facility] Moderna COVID-19 Moderna COVID-19 2020-09-21 Completed [facility] - Vaccine Vaccine 09:02:00 [facility] Moderna COVID-19 Moderna COVID-19 2020-09-21 Completed [facility] - Vaccine Vaccine 09:02:00 [facility] Moderna COVID-19 Moderna COVID-19 2020-08-24 Completed [facility] - Vaccine Vaccine 07:45:00 [facility] Moderna COVID-19 Moderna COVID-19 2020-08-24 Completed [facility] - Vaccine Vaccine 07:45:00 [facility] Moderna COVID-19 Moderna COVID-19 2020-08-24 Completed [facility] - Vaccine Vaccine 07:45:00 [facility] Moderna COVID-19 Moderna COVID-19 2020-08-24 Completed [facility] - Vaccine Vaccine 07:45:00 [facility] Moderna COVID-19 Moderna COVID-19 2020-08-24 Completed [facility] - Vaccine Vaccine 07:45:00 [facility] Moderna COVID-19 Moderna COVID-19 2020-08-24 Completed [facility] - Vaccine Vaccine 07:45:00 [facility] PNEUMAVAX 23 PNEUMAVAX 23 2019-11-25 Completed [facility] - 14:53:00 [facility] PNEUMAVAX 23 PNEUMAVAX 23 2019-11-25 Completed [facility] - 14:53:00 [facility] PNEUMAVAX 23 PNEUMAVAX 23 2019-11-25 Completed [facility] - 14:53:00 [facility] PNEUMAVAX 23 PNEUMAVAX 23 2019-11-25 Completed [facility] - 14:53:00 [facility] PNEUMAVAX 23 PNEUMAVAX 23 2019-11-25 Completed [facility] - 14:53:00 [facility] PNEUMAVAX 23 PNEUMAVAX 23 2019-11-25 Completed [facility] - 14:53:00 [facility] PNEUMAVAX 23 PNEUMAVAX 23 2019-11-25 Completed [facility] - 00:00:00 [facility] FluAD FluAD 2018-12-06 Completed [facility] - 17:05:00 [facility] FluAD FluAD 2018-12-06 Completed [facility] - 17:05:00 [facility] FluAD FluAD 2018-12-06 Completed [facility] - 17:05:00 [facility] FluAD FluAD 2018-12-06 Completed [facility] - 17:05:00 [facility] FluAD FluAD 2018-12-06 Completed [facility] - 17:05:00 [facility] FluAD FluAD 2018-12-06 Completed [facility] - 17:05:00 [facility] FluAD FluAD 2018-12-06 Completed [facility] - 00:00:00 [facility] Prevnar 13 Prevnar 13 2018-07-27 Completed [facility] - -Pneumonia Vaccine -Pneumonia Vaccine 13:46:00 [facility] Prevnar 13 Prevnar 13 2018-07-27 Completed [facility] - -Pneumonia Vaccine -Pneumonia Vaccine 13:46:00 [facility] Prevnar 13 Prevnar 13 2018-07-27 Completed [facility] - -Pneumonia Vaccine -Pneumonia Vaccine 13:46:00 [facility] Prevnar 13 Prevnar 13 2018-07-27 Completed [facility] - -Pneumonia Vaccine -Pneumonia Vaccine 13:46:00 [facility] Prevnar 13 Prevnar 13 2018-07-27 Completed [facility] - -Pneumonia Vaccine -Pneumonia Vaccine 13:46:00 [facility] Prevnar 13 Prevnar 13 2018-07-27 Completed [facility] - -Pneumonia Vaccine -Pneumonia Vaccine 13:46:00 [facility] Prevnar 13 Prevnar 13 2018-07-27 Completed [facility] - -Pneumonia Vaccine -Pneumonia Vaccine 00:00:00 [facility] FluAD FluAD 2018 Completed [facility] - 15:05:00 [facility] FluAD FluAD 2018 Completed [facility] - 15:05:00 [facility] FluAD FluAD 2018 Completed [facility] - 15:05:00 [facility] FluAD FluAD 2018 Completed [facility] - 15:05:00 [facility] FluAD FluAD 2018 Completed [facility] - 15:05:00 [facility] FluAD FluAD 2018 Completed [facility] - 15:05:00 [facility] FLUZONE HIGH DOSE FLUZONE HIGH DOSE 2017-04-28 Completed [facility] - OVER 65 OVER 65 15:54:00 [facility] FLUZONE HIGH DOSE FLUZONE HIGH DOSE 2017-04-28 Completed [facility] - OVER 65 OVER 65 15:54:00 [facility] FLUZONE HIGH DOSE FLUZONE HIGH DOSE 2017-04-28 Completed [facility] - OVER 65 OVER 65 15:54:00 [facility] FLUZONE HIGH DOSE FLUZONE HIGH DOSE 2017-04-28 Completed [facility] - OVER 65 OVER 65 15:54:00 [facility] FLUZONE HIGH DOSE FLUZONE HIGH DOSE 2017-04-28 Completed [facility] - OVER 65 OVER 65 15:54:00 [facility] FLUZONE HIGH DOSE FLUZONE HIGH DOSE 2017-04-28 Completed [facility] - OVER 65 OVER 65 15:54:00 [facility] Vital Signs Vital Name Observation Time Observation Value Comments Source Systolic blood 2022-07-30 23:48:00 99 mm[Hg] [facility] Diastolic blood 2022-07-30 23:48:00 62 [facility]Hg[facility] 2022-07-30 23:48:00 65 /min [facility] Body temperature 2022-07-30 23:48:00 36.67 [facility] Respiratory rate 2022-07-30 23:48:00 22 /min [facility] Body weight 2022-07-30 23:48:00 58.06 kg [facility] Oxygen saturation in 2022-07-30 23:48:00 100 /min [facility] Arterial blood by [facility] Pulse oximetry Branch height 2022-02-28 15:00:00 67.00 [in_i] [facility] weight 2022-02-28 15:00:00 134.2 [lb_av] [facility] temperature 2022-02-28 15:00:00 98.0 [degF] [facility] bmi 2022-02-28 15:00:00 21.02 kg/m2 [facility] oximetry 2022-02-28 15:00:00 100 % [facility] respiratory rate 2022-02-28 15:00:00 16 /min [facility] blood pressure 2022-02-28 15:00:00 138 mm[Hg] [facility] - systolic [facility] blood pressure 2022-02-28 15:00:00 78 mm[Hg] [facility] - diastolic [facility] Systolic (mm Hg) 2022-05-20 21:24:00 Braulio rial [place] Diastolic (mm Hg) 2022-05-20 21:24:00 Mem o[facility]d Heart Rate 2022-05-20 21:24:00 [facility] Height 2022-05-20 21:24:00 5 [ft_i] [facility] [place] Weight 2022-05-20 21:24:00 [facility] BMI Calculated 2022-05-20 21:24:00 Memori al [place] Systolic (mm Hg) 2021-10-17 19:27:00 Braulio rial [place] Diastolic (mm Hg) 2021-10-17 19:27:00 Mem orial [place] Heart Rate 2021-10-17 19:27:00 [facility] Respitory Rate 2021-10-17 19:27:00 Mem[facility]d Height 2021-10-17 19:27:00 165.1 cm [facility] [place] Weight 2021-10-17 19:27:00 [facility] BMI Calculated 2021-10-17 19:27:00 [facility] Systolic (mm Hg) 2021-07-12 19:20:00 Braulio rial [facility] Diastolic (mm Hg) 2021-07-12 19:20:00 Mem orial [place] Heart Rate 2021-07-12 19:20:00 [facility] [place] Respitory Rate 2021-07-12 19:20:00 Memori al [place] Height 2021-07-12 19:20:00 167.64 cm [facility] Weight 2021-07-12 19:20:00 [facility] BMI Calculated 2021-07-12 19:20:00 [facility] [place] Systolic (mm Hg) 2021-05-30 19:38:00 Braulio rial [facility] Diastolic (mm Hg) 2021-05-30 19:38:00 Mem orial [place] Heart Rate 2021-05-30 19:38:00 [facility] [place] Respitory Rate 2021-05-30 19:38:00 Memori al Kd Height 2021-05-30 19:38:00 170.18 cm [facility] Weight 2021-05-30 19:38:00 [facility] [place] BMI Calculated 2021-05-30 19:38:00 [facility] [place] Systolic (mm Hg) 2021-03-13 20:30:00 Braulio rial [facility] Diastolic (mm Hg) 2021-03-13 20:30:00 Mem orial [facility] Heart Rate 2021-03-13 20:30:00 [facility] [place] Respitory Rate 2021-03-13 20:30:00 Mem[facility] al [place] Height 2021-03-13 20:30:00 165.1 cm [facility] [place] Weight 2021-03-13 20:30:00 [facility] [place] BMI Calculated 2021-03-13 20:30:00 [facility] [place] Systolic (mm Hg) 2020-11-14 19:27:00 Braulio rial [facility]d Diastolic (mm Hg) 2020-11-14 19:27:00 Mem orial [facility] Heart Rate 2020-11-14 19:27:00 [facility] [place] Respitory Rate 2020-11-14 19:27:00 [facility] [place] Height 2020-11-14 19:27:00 167.64 cm [facility] Weight 2020-11-14 19:27:00 [facility] BMI Calculated 2020-11-14 19:27:00 [facility] [place] Systolic (mm Hg) 2020-08-08 21:03:00 Braulio rial [place] Diastolic (mm Hg) 2020-08-08 21:03:00 Mem orial Dk Heart Rate 2020-08-08 21:03:00 [facility] [place] Respitory Rate 2020-08-08 21:03:00 Memori al [place] Height 2020-08-08 21:03:00 167.64 cm [facility] Weight 2020-08-08 21:03:00 [facility] BMI Calculated 2020-08-08 21:03:00 Mem[facility] Systolic (mm Hg) 2019-12-23 19:40:00 Braulio rial [facility]d Diastolic (mm Hg) 2019-12-23 19:40:00 Mem orial [place] Heart Rate 2019-12-23 19:40:00 [facility] Respitory Rate 2019-12-23 19:40:00 Memori al [facility]d Height 2019-12-23 19:40:00 172.72 cm [facility] [place] Weight 2019-12-23 19:40:00 [facility] BMI Calculated 2019-12-23 19:40:00 Mem[facility] al [place] Respitory Rate 2019-01-05 19:15:00 Memori al Kd Height 2019-01-05 19:15:00 167.64 cm [facility] [place] Weight 2019-01-05 19:15:00 [facility] BMI Calculated 2019-01-05 19:15:00 Mem[facility] al [place] Systolic (mm Hg) 2019-01-05 19:15:00 Braulio rial [facility]d Diastolic (mm Hg) 2019-01-05 19:15:00 Mem orial [facility]d Heart Rate 2019-01-05 19:15:00 [facility] [place] Systolic (mm Hg) 2018-04-22 20:43:00 Braulio rial [facility]d Diastolic (mm Hg) 2018-04-22 20:43:00 Mem orial [place] Heart Rate 2018-04-22 20:43:00 [facility] [place] Height 2018-04-22 20:43:00 170.18 cm [facility] Weight 2018-04-22 20:43:00 [facility] BMI Calculated 2018-04-22 20:43:00 Memori al [place] Procedures Procedure Date / Time Performed Performing Clinician [facility] e CONSENT/REFUSAL FOR 2022-07-30 23:22:05 Doctor Unassigned, No Un [facility] DIAGNOSIS AND Name [facility] TREATMENT Encounters Start End Encounter Admission Attending Care Care Encounter Source Date/Time Date/Time Type Type Clinicians Facility Department ID 2022-06-26 Outpatient Capri, STLMLC [facility] [id number] Common 15:35:00 Crista [id number] [facility] 2022-06-24 Outpatient Capri, STLMLC [facility] [id number] Common 14:52:00 Crista [id number] [facility] 2022-06-11 Outpatient Capri, STLMLC [facility] [id number] Common 10:22:00 Crista [id number] [facility] 2022-05-01 Outpatient SUAREZSangita [facility] [id number] 2 Common 16:47:00 [id number] [facility] 2022-02-26 Outpatient Suarez, Na STLMLC [facility] [id number] 2 Common 13:48:01 [id number] [facility] 2021-10-29 Outpatient Suarez, Na STLMLC ST[facility]C [id number] 2 Common 14:56:04 [id number] [facility] 2021-04-24 Outpatient Suarez, Na STLMLC ST[facility]C [id number] 2 Common 14:00:35 [id number] [facility] 2021-04-24 Outpatient Suarez, Na STLMLC ST[facility]C [id number] 2 Common 13:59:58 [id number] [facility] 2021-04-24 Outpatient Suarez, Na STLMLC ST[facility]C [id number] 2 Common 13:12:28 [id number] [facility] 2021-04-24 Outpatient Suarez, Na STLMLC ST[facility]C [id number] 2 Common 13:08:41 [id number] [facility] 2021-04-24 Outpatient Suarez, Na STLMLC ST[facility]C [id number] 2 Common 12:37:16 [id number] [facility] 2021-04-24 Outpatient Suarez, Na STLMLC ST[facility]C [id number] 2 Common 12:11:44 [id number] [facility] 2021-04-24 Outpatient Suarez, Na STLMLC ST[facility] [id number] 2 Common 12:04:00 [id number] [facility] 2021-04-24 Outpatient Suarez, Na STLMLC ST[facility]C [id number] 2 Common 11:53:30 [id number] [facility] 2021-04-24 Outpatient Suarez, Na STLMLC ST[facility]C [id number] 2 Common 11:40:44 [id number] [facility] 2021-04-24 Outpatient Suarez, Na STLMLC ST[facility]C [id number] 2 Common 11:38:24 [id number] [facility] 2021-04-24 Outpatient Suarez, Na STLMLC ST[facility] [id number] 2 Common 11:29:04 [id number] [facility] 2021-04-24 Outpatient Sangita Suarez STLC [facility] [id number] 2 Common 11:27:02 [id number] [facility] 2022-08-20 2022-08-20 Outpatient MHIE MHIE [id number] Memoria 15:30:00 15:30:00 18 raquel Yi 2022-08-20 2022-08-20 Outpatient MHIE MHIE [id number] Memoria 15:30:00 15:30:00 18 raquel Yi 2022-07-30 2022-07-30 Emergency [facility] ERT [id number] Univers 18:49:00 21:14:00 , MARIA LUISA huang [facility] 2022-07-30 2022-07-30 [facility] [id number] Univers 18:49:00 21:14:00 , Maria Luisa [facility] [id number] i ty [facility] [id number] [facility] [id number] [address] 2022-05-20 2022-05-21 Outpatient MHIE MNA [id number] Memoria 21:30:00 05:59:59 Neurology 17 raquel Lani Yi 2022-05-20 2022-05-21 Outpatient MHIE MNA [id number] Memoria 21:30:00 05:59:59 Neurology 17 raquel Lani Yi 2022-05-20 2022-05-20 [id number] 15:30:00 23:59:59 Jefry 17 Slim 2022-05-20 2022-05-20 Outpatient MHIE MHIE [id number] Memoria 15:30:00 15:30:00 17 raquel Kd 2022-02-28 2022-02-28 SUB ANNUAL [facility] [id number] Common 00:00:00 00:00:00 MCR [facility] WELLNESS - [facility] VIS[facility] 2022-01-17 2022-01-17 Ambulatory nullFlavo MNA [id number] Memoria 20:15:00 20:15:00 Pre-Reg r Neurology 16 l Lani Yi 2022-01-17 2022-01-17 Ambulatory nullFlavo MNA [id number] Memoria 20:15:00 20:15:00 Pre-Reg r Neurology 16 raquel Yi 2022-01-17 2022-01-17 Outpatient MHIE MHIE [id number] Memoria 15:15:00 15:15:00 16 raquel Yi 2022-01-17 2022-01-17 Outpatient Carlos Manuel [facility] [id number] 15:15:00 15:15:00 Jefry 16 Slim 2021-10-17 2021-10-18 Outpatient nullFlavo MNA [id number] Memoria 19:30:00 04:59:59 r Neurology 15 raquel Yi 2021-10-17 2021-10-18 Outpatient nullFlavo MNA [id number] Memoria 19:30:00 04:59:59 r Neurology 15 raquel Yi 2021-10-17 2021-10-17 Outpatient Carlos Manuel [facility] [id number] 14:30:00 23:59:59 Jefry 15 Slim 2021-10-17 2021-10-17 Outpatient MHIE MHIE [id number] Memoria 14:30:00 14:30:00 15 raquel Yi 2021-07-16 2021-07-16 (TEL) STLC STLMLC [id number] Co mmon 00:00:00 00:00:00 [facility] 2021-07-12 2021-07-13 Outpatient nullFlavo MNA [id number] Memoria 18:45:00 04:59:59 r Neurology 14 raquel Yi 2021-07-12 2021-07-13 Outpatient nullFlavo MNA [id number] Memoria 18:45:00 04:59:59 r Neurology 14 raquel Ruizann 2021-07-12 2021-07-12 Outpatient [facility] [id number] 13:45:00 23:59:59 Jefry 14 Slim 2021-07-12 2021-07-12 Outpatient MHIE MHIE [id number] Memoria 13:45:00 13:45:00 14 raquel Yi 2021-06-21 2021-06-21 (TEL) STLMLC STL[facility]C [id number] Co mmon 00:00:00 00:00:00 [facility] 2021-05-30 2021-05-31 Outpatient nullFlavo MNA [id number] Memoria 19:30:00 05:59:59 r Neurology 13 l Lani Yi 2021-05-30 2021-05-31 Outpatient nullFlavo MNA [id number] Memoria 19:30:00 05:59:59 r Neurology 13 l Lani Yi 2021-05-30 2021-05-30 Outpatient [facility] [id number] 13:30:00 23:59:59 Jefry 13 Slim 2021-05-30 2021-05-30 Outpatient MHIE MHIE [id number] Memoria 13:30:00 13:30:00 13 raquel Yi 2021-03-13 2021-03-14 Outpatient nullFlavo MNA [id number] Memoria 20:30:00 05:59:59 r Neurology 12 l Lani Yi 2021-03-13 2021-03-14 Outpatient nullFlavo MNA [id number] Memoria 20:30:00 05:59:59 r Neurology 12 raquel Yi 2021-03-13 2021-03-13 Outpatient [facility] [id number] 14:30:00 23:59:59 Jefry 12 Slim 2021-03-13 2021-03-13 Outpatient MHIE MHIE [id number] Memoria 14:30:00 14:30:00 12 raquel Yi 2020-11-14 2020-11-15 Outpatient nullFlavo MNA [id number] Memoria 19:15:00 04:59:59 r Neurology 11 raquel Yi 2020-11-14 2020-11-15 Outpatient nullFlavo MNA [id number] Memoria 19:15:00 04:59:59 r Neurology 11 raquel Yi 2020-11-14 2020-11-14 Outpatient [facility] [id number] 14:15:00 23:59:59 Jefry 11 Slim 2020-11-14 2020-11-14 Outpatient MHIE MHIE [id number] Memoria 14:15:00 14:15:00 11 raquel iY 2020-09-21 2020-09-21 (COVID STLMLC STLMLC [id number] Co mmon 00:00:00 00:00:00 Inj) COVID Spi rit Injection - [facility] 2020-09-04 2020-09-04 (TEL) STLMLC STLMLC [id number] Co mmon 00:00:00 00:00:00 [facility] 2020-08-24 2020-08-24 (COVID STLMLC STLMLC [id number] Co mmon 00:00:00 00:00:00 Inj) COVID Spi rit Injection - [facility] 2020-08-08 2020-08-09 Outpatient nullFlavo MNA [id number] Memoria 20:30:00 04:59:59 r Neurology 10 raquel Garibay Kd 2020-08-08 2020-08-09 Outpatient nullFlavo MNA [id number] Memoria 20:30:00 04:59:59 r Neurology 10 raquel Garibay [place] 2020-08-08 2020-08-08 Outpatient [facility]owitz [facility] [id number] 15:30:00 23:59:59 Jefry 10 Slim 2020-08-08 2020-08-08 Outpatient MHIE MHIE [id number] Memoria 15:30:00 15:30:00 10 raquel Yi 2020-06-21 2020-06-21 Ambulatory nullFlavo MNA [id number] Memoria 19:15:00 19:15:00 Pre-Reg r Neurology 09 raquel Garibay [place] 2020-06-21 2020-06-21 Ambulatory nullFlavo MNA [id number] Memoria 19:15:00 19:15:00 Pre-Reg r Neurology 09 raquel Ruizann 2020-06-21 2020-06-21 Outpatient MHIE MHIE [id number] Memoria 14:15:00 14:15:00 09 raquel iY 2020-06-21 2020-06-21 Outpatient GARRISON Horowitz [facility] [id number] 14:15:00 14:15:00 Jefry 09 Slim 2020-04-16 2020-04-16 Outpatient STLMLC STL[facility]C [id number] Common 00:00:00 00:00:00 [facility] 2020-03-09 2020-03-09 Outpatient STLMLC STLMLC [id number] Common 00:00:00 00:00:00 [facility] 2019-12-28 2019-12-28 Outpatient STLMLC STLMLC [id number] Common 00:00:00 00:00:00 [facility] 2019-12-23 2019-12-24 Outpatient nullFlavo MNA [id number] Memoria 19:30:00 04:59:59 r Neurology 08 l Lani [place] 2019-12-23 2019-12-24 Outpatient nullFlavo MNA [id number] Memoria 19:30:00 04:59:59 r Neurology 08 l Lani [place] 2019-12-23 2019-12-23 Outpatient [facility] [id number] 14:30:00 23:59:59 Jefry Julio C Slim 2019-12-23 2019-12-23 Outpatient MHIE MHIE [id number] Memoria 14:30:00 14:30:00 08 l Kd 2019-12-22 2019-12-22 Outpatient STLMLC STLMLC [id number] Common 00:00:00 00:00:00 [facility] 2019-12-16 2019-12-16 Outpatient [facility] [id number] Common 15:50:00 15:50:00 t Specialty/U Sp fabiana Specialty rology - [facility] 2019-12-15 2019-12-15 Out[facility] [id number] Common 14:00:00 14:00:00 t Specialty/U Sp fabiana Specialty rology - [facility] /Urology Clinic [facility] 2019-11-25 2019-11-25 Out[facility] [id number] Common 13:20:00 13:20:00 t [email or web address] [facility] it Golimi [facility] 2019-11-06 2019-11-06 Out[facility] [id number] Common 21:01:00 21:01:[address] [facility] 2019-09-14 2019-09-14 Outpatient [facility] [id number] Common 11:40:00 11:40:[address] [facility] 2019-08-14 2019-08-14 Outpatient [facility] [id number] Common 05:06:00 05:06:[address] [facility] 2019-07-08 2019-07-08 Ambulatory nullFlavo MNA [id number] Memoria 20:00:00 20:00:00 Pre-Reg r Neurology 06 l Terry Kd 2019-07-08 2019-07-08 Ambulatory nullFlavo MNA [id number] Memoria 20:00:00 20:00:00 Pre-Reg r Neurology 06 l Terry Kd 2019-07-08 2019-07-08 Outpatient MHIE MHIE [id number] Memoria 15:00:00 15:00:00 06 l Kd 2019-07-08 2019-07-08 Outpatient VANDANA [facility] [id number] 15:00:00 15:00:00 Jefry Julio Slim 2019-07-07 2019-07-07 Ambulatory nullFlavo MNA [id number] Memoria 19:15:00 19:15:00 Pre-Reg r Neurology 07 l Terry Kd 2019-07-07 2019-07-07 Ambulatory nullFlavo MNA [id number] Memoria 19:15:00 19:15:00 Pre-Reg r Neurology 07 l Terry Kd 2019-07-07 2019-07-07 Outpatient MHIE MHIE [id number] Memoria 14:15:00 14:15:00 07 raquel Kd 2019-07-07 2019-07-07 Outpatient Carlos Manuel [facility] [id number] 14:15:00 14:15:00 Jefry Sydney Smalls 2019-03-07 2019-03-07 Out[facility] [id number] Common 15:00:00 15:00:[address] [facility] 2019-01-05 2019-01-06 Outpatient nullFlavo MNA [id number] Memoria 19:15:00 04:59:59 r Neurology 05 l Lani Yi 2019-01-05 2019-01-06 Outpatient nullFlavo MNA [id number] Memoria 19:15:00 04:59:59 r Neurology 05 raquel Yi 2019-01-05 2019-01-[address] [facility] [id number] 14:15:00 23:59:59 Jefry Aditya Smalls 2019-01-05 2019-01-05 Outpatient MHIE MHIE [id number] Memoria 14:15:00 14:15:00 05 raquel [place] 2018-12-06 2018-12-06 Out[facility] [id number] Common 15:20:00 15:20:[address] [facility] 2018-11-23 2018-11-23 Ambulatory nullFlavo MNA [id number] Memoria 14:00:00 14:00:00 Pre-Reg r Neurology 04 l Lani Yi 2018-11-23 2018-11-23 Ambulatory nullFlavo MNA [id number] Memoria 14:00:00 14:00:00 Pre-Reg r Neurology 04 l Lani Ruizann 2018-11-23 2018-11-23 Out[facility] [id number] Common 10:00:00 10:00:[address] [facility] 2018-11-23 2018-11-23 Outpatient Carlos Manuel [facility] [id number] 09:00:00 09:00:00 Jefryelicia Smalls 2018-10-14 2018-10-14 Outpatient MHIE MHIE [id number] Memoria 11:30:00 11:30:00 Gurvinder garcía Kd 2018-07-27 2018-07-27 Outpatient [facility] [id number] Common 13:00:00 13:00:[address] [facility] 2018-04-28 2018-04-28 Outpatient [facility] [id number] Common 14:00:00 14:00:[address] [facility] 2018-04-22 2018-04-23 Outpatient nullFlavo MNA [id number] Memoria 20:15:00 05:59:59 r Neurology 03 l Lani Yi 2018-04-22 2018-04-23 Outpatient nullFlavo MNA [id number] Memoria 20:15:00 05:59:59 r Neurology 03 l Lani Yi 2018-04-22 2018-04-22 Outpatient Carlos Manuel [facility] [id number] 14:15:00 23:59:59 Jefry Ish Smalls 2018-04-22 2018-04-22 Outpatient MHIE MHIE [id number] Memoria 14:15:00 14:15:00 03 raquel Yi 2018-03-26 2018-03-26 Ambulatory nullFlavo MNA [id number] Memoria 20:30:00 20:30:00 Pre-Reg r Neurology 02 l Lani Yi 2018-03-26 2018-03-26 Ambulatory nullFlavo MNA [id number] Memoria 20:30:00 20:30:00 Pre-Reg r Neurology 02 l Lani Ruizann 2018-03-26 2018-03-26 Outpatient MHIE MHIE [id number] Memoria 14:30:00 14:30:00 02 raquel Yi 2018-03-26 2018-03-26 Outpatient Carlos Manuel [facility] [id number] 14:30:00 14:30:00 Jefry 02 Slim 2017-10-26 2017-10-26 Out[facility] [id number] Common 14:00:00 14:00:00 t [email or web address] [facility] it Gol[facility] 2017-09-24 2017-09-24 Outpatient MHIE MHIE [id number] Memoria 14:30:00 14:30:00 01 raquel Yi 2017-09-24 2017-09-24 Outpatient MHIE MHIE [id number] Memoria 14:30:00 14:30:00 01 raquel Yi 2017-08-12 2017-08-12 Outpatient MHIE MHIE [id number] Memoria 15:15:00 15:15:00 00 raquel Yi 2017-08-12 2017-08-12 Outpatient MHIE MHIE [id number] [facility] 15:15:00 15:15:00 00 raquel Yi Results This patient has no known results.
[2022-08-14] MEDS ORDERED: ONDANSETRON 4 MG/2 ML VIAL ONE (00:20)
[2022-08-14] MEDS ORDERED: MORPHINE 2 MG/ML SYR ONE (00:20)
[2022-08-14 01:03] LABS: Absolute Lymphocytes (CBC) 1.2 K/uL (0.7-4.9); Hematocrit 28.2 % (39.6-49.0); Lymphocytes % 17.3 % (15.3-44.8); MCV 93.5 fL (80-100); MPV 8.1 fL (7.6-11.3); RBC Red Blood Cell Count 3.01 M/uL (4.33-5.43)
[2022-08-14 01:05] LABS: Albumin 3.9 g/dL (3.4-5.0); Bilirubin Total 0.4 mg/dL (0.2-1.0); Potassium 4.3 mEq/L (3.5-5.1); Protein, Total 7.1 g/dL (6.4-8.2)
[2022-08-14] MEDS ORDERED: FLEET ENEMA ADULT PR ONE (02:45)
[2022-08-14] MEDS ORDERED: LACTULOSE 20 GM/30 ML UCUP ONE (02:45)
--- NOTE | 2022-08-14 03:09 | EDPHYS ---
Physician Documentation [facility] Name: Izabel Archuleta Age: 77 yrs Sex: Male : 1945 Arrival Date: 08/13/2022 Time: 23:45 Bed 15 Private MD: ED Physician Billie Tanner HPI: 08/14 00:05 This 77 yrs old Male presents to ER via Ambulatory with complaints of cp Constipation. 00:05 The patient presents with abdominal pain. cp 00:05 Onset: The symptoms/episode began/occurred 4 day(s) ago. Associated signs and symptoms: cp Pertinent positives: constipation, Pertinent negatives: nausea and vomiting, anorexia, diarrhea, fever, testicular pain, vomiting. Severity of pain: in the emergency department the pain is unchanged despite home interventions. Historical: - Allergies: 08/13 23:55 No Known Allergies; kl - Home Meds: 23:55 atorvastatin Oral [Active]; Metformin Oral [Active]; Namzaric Oral [Active]; kl Mirtazapine Oral [Active]; Seroquel Oral [Active]; - PMHx: 23:55 Dementia; NIDDM; colon cancer; kl - PSHx: 23:55 bowel resection; kl - Immunization history:: Adult Immunizations up to date. - Social history:: Smoking status: Patient denies any tobacco usage or history of. ROS: 08/14 00:10 Constitutional: Negative for body aches, chills, fever, poor PO intake. cp 00:10 Eyes: Negative for injury, pain, redness, and discharge. cp 00:10 Cardiovascular: Negative for chest pain, palpitations. 00:10 Respiratory: Negative for cough, shortness of breath, wheezing. 00:10 Abdomen/GI: Positive for abdominal pain, constipation, rectal pain, Negative for vomiting. 00:10 Neuro: Negative for altered mental status, weakness. 00:10 All other systems are negative. Exam: 00:10 Head/Face: Normocephalic, atraumatic. cp 00:10 Constitutional: The patient appears in no acute distress, alert, awake, non-diaphoretic, non-toxic, well developed, well nourished, uncomfortable. 00:10 Eyes: Periorbital structures: appear normal, Conjunctiva: normal, no exudate, no injection, Sclera: no appreciated abnormality, Lids and lashes: appear normal, bilaterally. 00:10 ENT: External ear(s): are unremarkable, Nose: is normal, Mouth: Lips: moist, Oral mucosa: moist, Posterior pharynx: is normal, airway is patent, no erythema, no exudate. 00:10 Chest/axilla: Inspection: normal. 00:10 Cardiovascular: Rate: normal, Rhythm: regular. 00:10 Respiratory: the patient does not display signs of respiratory distress, Respirations: normal, no use of accessory muscles, no retractions, labored breathing, is not present, Breath sounds: are clear throughout, no decreased breath sounds, no stridor, no wheezing. 00:10 Abdomen/GI: Inspection: abdomen appears normal, Bowel sounds: active, all quadrants, Palpation: soft, in all quadrants, mild abdominal tenderness, in the right lower quadrant and left lower quadrant, rebound tenderness, is not appreciated, involuntary guarding, is not appreciated. 00:10 Neuro: Orientation: no acute changes, per family, Mentation: no acute changes, per family, Motor: moves all fours, strength is normal, Gait: is steady. 02:45 : Rectal exam: Stool: brown, soft, impaction noted. cp Vital Signs: 08/13 23:52 BP 112 / 67; Pulse 78; Resp 20; Temp 97.9(TE); Pulse Ox 100% ; Height 5 ft. 8 in. ; kl 08/14 01:50 BP 116 / 55; Pulse 63; Resp 19; Pulse Ox 98% ; vc1 01:52 Temp 98.6; vc1 02:28 BP 113 / 66; Pulse 72; Pulse Ox 98% on R/A; kl 03:32 BP 130 / 78; Pulse 78; Resp 18; Temp 97(TE); Pulse Ox 98% on R/A; kl MDM: 00:01 Patient medically screened. cp 03:09 Data reviewed: vital signs, nurses notes, lab test result(s), radiologic studies, CT cp scan. 03:09 Differential diagnosis: non-specific abd pain, Pyelonephritis, Ureterolithiasis, cp urinary tract infection, bowel obstruction, fecal impaction. Consideration of Admission/Observation Escalation of care including admission/observation considered. I considered the following discharge prescriptions or medication management in the emergency department Medications were administered in the Emergency Department. See MAR. Care significantly affected by the following chronic conditions: Diabetes, dementia. Counseling: I had a detailed discussion with the patient and/or guardian regarding: the historical points, exam findings, and any diagnostic results supporting the discharge/admit diagnosis, lab results, radiology results, to return to the emergency department if symptoms worsen or persist or if there are any questions or concerns that arise at home. Response to treatment: the patient's symptoms have markedly improved after treatment, and as a result, I will discharge patient. 08/14 00:08 Order name: CBC with Diff; Complete Time: 08/14 01:30 Interpretation: Normal except: RBC 3.01; HGB 9.7; HCT 28.2. 08/14 00:08 Order name: CMP; Complete Time: 08/14 00:30 Interpretation: Normal except: CL 109; GLUC 158; BUN 37; CRE 1.59; GFR 44; AST 14. 08/14 00:08 Order name: Lipase; Complete Time: 08/14 01:30 Interpretation: Reviewed. 08/14 00:08 Order name: XRAY Chest (1 view) 08/14 01:33 Order name: Abdomen EDMS 08/14 00:08 Order name: IV Saline Lock; Complete Time: 00:21 08/14 00:08 Order name: Labs collected and sent; Complete Time: 00:21 cp Administered Medications: 00:20 Drug: Ondansetron IVP 4 mg Route: IVP; Site: left antecubital; kl 01:04 Follow up: Response: No adverse reaction; Marked relief of symptoms kl 00:23 Drug: morphine IVP or IV 2 mg Route: IVP; Infused Over: 4 mins; Site: left antecubital; kl 01:04 Follow up: Response: No adverse reaction; Marked relief of symptoms kl 03:15 Drug: Lactulose PO 20 grams Volume: 30 ml; Route: PO; kl 03:15 Drug: Fleet Enema GA 133 ml Route: GA; kl Disposition Summary: 08/14/22 03:09 Discharge Ordered Location: Home cp Problem: new cp Symptoms: have improved cp Condition: Stable cp Diagnosis - Fecal impaction cp - Constipation, unspecified cp Followup: cp - With: Private Physician - When: 1 - 2 days - Reason: Worsening of condition Discharge Instructions: - Discharge Summary Sheet cp - Constipation, Adult cp - Fecal Impaction cp Forms: - Medication Reconciliation Form cp - Thank You Letter cp - Antibiotic Education cp - Prescription Opioid Use cp Prescriptions: - Miralax 17 gram Oral powder in packet - take 1 packet by ORAL route daily As needed; 1 unit; Refills: 0, Product cp Selection Permitted Signatures: Dispatcher [employer] EDMS Margo Howard RN RN Eladio Landers PA PA cp Corrections: (The following items were deleted from the chart) 01:33 00:26 Abdomen Pelvis W Con+CT.RAD.BRZ ordered. EDMS EDMS
--- NOTE | 2022-08-14 03:09 | ER ---
Nurse's Notes [facility] Name: Izabel Archuleta Age: 77 yrs Sex: Male : 1945 Arrival Date: 08/13/2022 Time: 23:45 Bed 15 Private MD: Diagnosis: Fecal impaction;Constipation, unspecified Presentation: 08/13 23:52 Chief complaint: Spouse and/or significant other states: constipation x 4 days given kl colace x 2 times pt with advanced dementia. Coronavirus screen: Vaccine status: Patient reports receiving the 2nd dose of the covid vaccine. Ebola Screen: Patient negative for fever greater than or equal to 101.5 degrees Fahrenheit, and additional compatible Ebola Virus Disease symptoms. Initial Sepsis Screen: Does the patient meet any 2 criteria? No. Patient's initial sepsis screen is negative. Does the patient have a suspected source of infection? No. Patient's initial sepsis screen is negative. Risk Assessment: Do you want to hurt yourself or someone else? Patient reports no desire to harm self or others. 23:52 Method Of Arrival: Ambulatory kl 23:52 Acuity: CLIVE 3 kl Triage Assessment: 23:58 General: Appears distressed, Behavior is agitated, anxious. Pain: Unable to use pain kl scale. Does not appear to understand pain scale. GI: Parent/caregiver reports the patient having bloating, constipation. Historical: - Allergies: 23:55 No Known Allergies; kl - Home Meds: 23:55 atorvastatin Oral [Active]; Metformin Oral [Active]; Namzaric Oral [Active]; kl Mirtazapine Oral [Active]; Seroquel Oral [Active]; - PMHx: 23:55 Dementia; NIDDM; colon cancer; kl - PSHx: 23:55 bowel resection; kl - Immunization history:: Adult Immunizations up to date. - Social history:: Smoking status: Patient denies any tobacco usage or history of. Screenin/18 00:02 [facility] ED Fall Risk Assessment (Adult) History of falling in the last 3 months, lg3 including since admission No falls in past 3 months (0 pts). Abuse screen: Denies threats or abuse. Denies injuries from another. Nutritional screening: No deficits noted. Tuberculosis screening: No symptoms or risk factors identified. Assessment: 00:02 General: Appears in no apparent distress. uncomfortable, Behavior is calm, cooperative. lg3 Pain: Complains of pain in abdomen and rectum. Neuro: No deficits noted. Hurd Agitation-Sedation Scale (RASS): 0 - Alert and Calm Level of Consciousness is awake, alert, advanced dementia. Cardiovascular: No deficits noted. Capillary refill < 3 seconds Clubbing of nail beds is absent JVD is absent Patient's skin is warm and dry. Respiratory: No deficits noted. Airway is patent Trachea midline Respiratory effort is even, unlabored, Respiratory pattern is regular, symmetrical. GI: Bowel sounds present X 4 quads. Abd is soft X 4 quads Parent/caregiver reports the patient having constipation, cramping. : No deficits noted. No signs and/or symptoms were reported regarding the genitourinary system. EENT: No deficits noted. No signs and/or symptoms were reported regarding the EENT system. Derm: No deficits noted. No signs and/or symptoms reported regarding the dermatologic system. Skin is intact, is thin, Skin is dry, Skin is normal, Skin temperature is warm. Musculoskeletal: No deficits noted. No signs and/or symptoms reported regarding the musculoskeletal system. Circulation, motion, and sensation intact. Range of motion: intact in all extremities. 01:45 Reassessment: Patient appears in no apparent distress at this time. No changes from lg3 previously documented assessment. Patient and/or family updated on plan of care and expected duration. Pain level reassessed. Patient is alert, oriented x 3, equal unlabored respirations, skin warm/dry/pink. 03:31 Reassessment: No changes from previously documented assessment. large amout of stool Patient states feeling better. Patient states symptoms have improved. Vital Signs: 08/13 23:52 BP 112 / 67; Pulse 78; Resp 20; Temp 97.9(TE); Pulse Ox 100% ; Height 5 ft. 8 in. ; 08/14 01:50 BP 116 / 55; Pulse 63; Resp 19; Pulse Ox 98% ; vc1 01:52 Temp 98.6; vc1 02:28 BP 113 / 66; Pulse 72; Pulse Ox 98% on R/A; 03:32 BP 130 / 78; Pulse 78; Resp 18; Temp 97(TE); Pulse Ox 98% on R/A; ED Course: 08/13 23:49 Patient arrived in ED. ag3 23:51 Eladio Zaldivar PA is PHCP. cp 23:51 Billie Tanner MD is Attending Physician. cp 23:55 Triage completed. kl 08/14 00:02 Patient has correct armband on for positive identification. Placed in gown. Bed in low lg3 position. Call light in reach. Side rails up X 1. Door closed. Noise minimized. Warm blanket given. Family accompanied patient. 00:20 Inserted saline lock: 20 gauge in left antecubital area, using aseptic technique. Blood rv1 collected. 00:21 CBC with Diff Sent. rv1 00:21 CMP Sent. rv1 00:21 Lipase Sent. rv1 00:33 XRAY Chest (1 view) In Process Unspecified. EDMS 00:58 CBC with Diff Sent. rv1 00:58 CMP Sent. rv1 00:58 Lipase Sent. rv1 01:39 Abdomen In Process Unspecified. 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 disimpaction. IV discontinued, intact, kl bleeding controlled, No redness/swelling at site. Pressure dressing applied. Administered Medications: 00:20 Drug: Ondansetron IVP 4 mg Route: IVP; Site: left antecubital; kl 01:04 Follow up: Response: No adverse reaction; Marked relief of symptoms kl 00:23 Drug: morphine IVP or IV 2 mg Route: IVP; Infused Over: 4 mins; Site: left antecubital; kl 01:04 Follow up: Response: No adverse reaction; Marked relief of symptoms kl 03:15 Drug: Lactulose PO 20 grams Volume: 30 ml; Route: PO; kl 03:15 Drug: Fleet Enema ND 133 ml Route: ND; kl Medication: 03:33 VIS not applicable for this client. kl Outcome: 03:09 Discharge ordered by . cp 03:33 Discharged to home via wheelchair, with family. kl 03:33 Condition: improved 03:33 Discharge instructions given to family, pastrycook's assistant, Instructed on discharge instructions, follow up and referral plans. medication usage, Demonstrated understanding of instructions, follow-up care, medications, Prescriptions given X 1. 03:34 Patient left the ED. kl Signatures: Dispatcher [employer] EDMS Margo Howard RN RN kl Page, Corey, PA PA cp Gomez, Alice ag3 María Ritter, RN RN lg3 Muna Chaudhary, RN RN vc1 Glory Barlow rv1
[2022-08-14 04:11] VITALS: O2SAT 98
[2022-08-14 04:16] VITALS: BP 130/78; TEMP 97
--- NOTE | 2022-08-14 13:34 | RAD REPORT ---
EXAM DESCRIPTION: CT - Abdomen Pelvis Wo Contrast - 08/14/2022 2:17 am CLINICAL HISTORY: The patient is 77 years old and is Male; abd and rectal pain, constipation TECHNIQUE: Axial computed tomography images of the abdomen and pelvis without intravenous contrast. Sagittal and coronal reformatted images were created and reviewed. This CT exam was performed usi ng one or more of the following dose reduction techniques: automated exposure control, adjustment o f the mA and/or kV according to patient size, and/or use of iterative reconstruction technique. COMPARISON: CT Abdomen Pelvis dated January 04 2022 FINDINGS: LUNG BASES: Unremarkable. No mass. No consolidation. ABDOMEN: LIVER: Homogeneous without focal mass. GALLBLADDER AND BILE DUCTS: No calcified stones. No ductal dilation. PANCREAS: Unremarkable. No ductal dilation. SPLEEN: Unremarkable. ADRENALS: Unremarkable. No mass. KIDNEYS AND URETERS: Redemonstration of the large bilateral exophytic renal cysts, the largest is on the right measuring approximately 11.1 cm. No follow-up imaging is recommended. There is no hydro nephrosis or hydroureter of either kidney. No obstructing renal or ureteral calculus is seen. STOMACH AND BOWEL: The stomach is moderately distended with food contents. The small bowel is rel atively normal caliber. Proximal small bowel is fluid-filled. A moderate amount stool is present th roughout colon. A moderate to large rectal stool ball is noted. Postsurgical changes the level of the sigmoid colon is present. PELVIS: APPENDIX: No findings to suggest acute appendicitis. BLADDER: The bladder is not well distended. REPRODUCTIVE: Unremarkable as visualized. ABDOMEN and PELVIS: INTRAPERITONEAL SPACE: Unremarkable. No free air. No significant fluid collection. BONES/JOINTS: Minimal degenerative change of the spine is present. There is no acute fracture. SOFT TISSUES: The soft tissues are normal. VASCULATURE: Atherosclerosis of the aorta is present. No abdominal aortic aneurysm. LYMPH NODES: Unremarkable. No enlarged lymph nodes. IMPRESSION: 1. Moderate stool burden with moderate to large rectal stool ball. 2. Chronic findings as detailed above. Electronically signed by: Omayra Monet MD 08/14/2022 2:00 AM CDT Due to temporary technical issues with the PACS/Fluency reporting system, reports are being signed by the in house radiologists without review as a courtesy to insure prompt reporting. The interpreting radiologist is fully responsible for the content of the report.
--- NOTE | 2022-08-14 18:08 | RAD REPORT ---
EXAM DESCRIPTION: RAD - Chest Single View - 08/14/2022 12:31 am CLINICAL HISTORY: Abdominal pain TECHNIQUE: Frontal view of the chest. COMPARISON: No relevant prior studies available. FINDINGS: Lungs: Unremarkable. No consolidation. Pleural space: Unremarkable. No pneumothorax. Heart: Unremarkable. No cardiomegaly. Mediastinum: Unremarkable. Bones/joints: Unremarkable. Vasculature: Thoracic aortic atherosclerosis. IMPRESSION: No acute disease. Electronically signed by: Maxine La MD 08/14/2022 12:46 AM CDT Due to temporary technical issues with the PACS/Fluency reporting system, reports are being signed by the in house radiologists without review as a courtesy to insure prompt reporting. The interpreting radiologist is fully responsible for the content of the report.
== END 2022-08-14 03:34 | disposition home or self-care (01) ==
LOC: ER 23:45
DX: K56.41 Fecal impaction (principal); Z85.038 Personal history of other malignant neoplasm of large intestine; E11.9 Type 2 diabetes mellitus without complications; F03.90 Unspecified dementia, unspecified severity, without behavioral disturbance, psychotic disturbance, mood disturbance, and anxiety
CPT/HCPCS: 85025; 36415; 83690; 80053; 74176; 71045; 96375; 96374; 99284; J2270; J2405

== ENCOUNTER 2023-02-08 10:05 | Emergency (ER) | payer OTHER ==
--- OUTSIDE RECORDS SUMMARY | 2023-02-08 10:10 | XMS REPORT | Continuity of Care Document ---
:1945 Author Organization [facility] t Address [address] [place] [address] [address] [place] [address] Care Team Providers Name Role Phone Ameya Tanner Primary Care Physician Drea Neff Attending Clinician Unavailable Crista Farooq Attending Clinician Unavailable Sangita SUAREZ Attending Clinician Unavailable Jefry Horowitz Attending Clinician MARIA LUISA ZENDEJAS Attending Clinician Unavailable Maria Luisa Zendejas MD Attending Clinician Payers Payer Name Policy Type Policy Number Effective Date Expiration Date Emily castrobc RUBINA/HE [id number] 2022 MEDICARE 00:00:00 ADVANTAGE MEDICARE MB [id number] [facility] - [facility] MEDICARE C1 [id number] [facility] fabiana - [facility] HUMANA MEDICARE C1 [id number] [facility] fabiana - [facility] MEDICARE C1 [id number] [facility] fabiana - [facility] Problems Condition Condition Condition Status Onset Resolution Last Treating Co mments Source Name Details Category Date Date Treatment Clinician Date Primary Primary Problem Active 2016-032022-12-21 Frank steinberg degenerati 0-13 02:39:10 l ve ve 00:00: Kd dementia dementia 00 of the of the Alzheimer Alzheimer type, type, senile senile onset onset (disorder) (disorder) Active 01/09/2017 Problem 12/21/2022 [facility] Hyperlipid Hyperlipi Problem Active 2022-12-21 Elisha valera demia 11-28 02:39:10 l (disorder) (disorder) 00:00: He rmann Active 00 11/28/2016 Problem 12/21/2022 [facility] Type II Type II Problem Active 2022-12-21 Ut sudheer diabetes diabetes 11-28 02:39:10 l mellitus mellitus 00:00: Kavon n without without 00 complicati complicati on on (disorder) (disorder) Active 11/28/2016 Problem 12/21/2022 [facility] Chronic Chronic Problem Common renal kidney Spirit failure disease - [facility]I syndrome (CKD) [facility] Benign Colon Problem Common neoplasm polyps Spirit of colon - [facility] Hydrocele Hydrocele Problem Com mon Spirit - [facility] Hypertensi HTN Problem Commo n on (hypertens Spirit ion) - [facility] Type 2 Diabetes Problem Common diabetes mellitus Spirit mellitus type II, - [facility] well controlled [facility] Anemia Anemia Problem [facility] Sexual Sexual Problem Common dysfunctio dysfunctio Sp fabiana n n - [facility] Spermatoce Spermatoce Problem C ommon le le of Spirit epididymis - [id number] Gastroesop Problem Co mmon hageal Spirit reflux - [facility] disease [facility] esophagiti Medica l s [place] Dementia Dementia Problem Commo n in other Spirit diseases - [facility] classified [facility] disturbanc e Alzheimer' Alzheimer' Problem C ommon s disease 's [facility] Allergic Allergic Problem Commo n rhinitis rhinitis, Spiri t unspecifie - [facility] d [facility] y, Medical unspecifie Center d trigger History of Hx of Problem Commo n malignant malignant Spir it neoplasm neoplasm - CHI of colon of colon [facility] [id number] Iron Problem Common deficiency Spirit anemia, - CHI unspecifie [facility] iron [facility] Medica l anemia Center type [id number] +5th digit Problem Co mmon eff Spirit 12/29/19*Ch - CHI ronic kidney [facility] disease, Medical stage 3 Center (moderate) [id number] Type 2 Problem [facility] mellitus - [facility] with diabetic [facility] chronic [facility] kidney Center disease [id number] Leukocytos Problem Co mmon is, Spirit unspecifie - CHI d type [facility] Anxiety Anxiety Problem Active 2022-12-21 Me moria (finding) (finding) 02:39:10 l Active [place] Problem 12/21/2022 [facility] Insomnia Insomnia Problem Active 2022-12-21 Memoria (disorder) (disorder) 02:39:10 l Active Kd Problem 12/21/2022 [facility] Labile Labile Problem Active 2022-12-21 [facility] affect affect 02:39:10 l (finding) (finding) Herm shiva Active Problem 12/21/2022 [facility] Allergies, Adverse Reactions, Alerts Allergy Allergy Status Severity Reaction(s) Onset Inactive Treating Comm ents Source Name Type Date Date Clinician PENICILL DRUG Active Unknown-Cmnt Un smiley IN INGREDI 07-30 ity of 00:00: [place] 00 Medical Branch Penicill Propensi Active Unknown - Uni vers in ty to See comments 07-30 ity of adverse 00:00: [place] reaction 00 Medical s Branch penicill penicill Active Memori a ins ins l [place] Penicill Penicill Active Unknown Commo n in in [facility] amoxicil amoxicil Active Unknown Commo n tesfaye tesfaye [facility] Social History Social Habit Start Date Stop Date Quantity Comments Source History of Tobacco [facility] - [facility] Use [facility] Exposure to 2022-07-20 2022-07-30 Not sure [facility] SARS-CoV-2 (event) 00:00:00 20:55:00 Medica l Branch Sex Ass[birth year] At [birth year] [facility] 00:00:00 00:00:00 Medical Branch Smoking Status Start Date Stop Date Source Tobacco smoking [employer] consumption unknown Medical Bran ch Never Smoker [facility] Ce nter Tobacco smoking status 2022-05-20 21:25:18 2022-05-20 Arthuror kae Yi 21:25:18 Medications Ordered Filled Start Stop Current Ordering Indication Dosage Frequency Signature Comments Components Source Medication Medication Date Date Medication? Clinician (SIG) Name Name cetirizine Yes 10mg Take 1 Unive rs 10 mg 5-03 tablet by ity of tablet 20:54: mouth in [place] [address] the Medical morning. Branch atorvastati Yes 20mg Take 1 Univ ers n 20 mg 5-03 tablet by ity of tablet 20:54: mouth at [place] [address] bedtime. Medical Branch memantine Yes 10mg Take 1 Univer s 10 mg 5-03 tablet by ity of tablet 20:54: mouth in [place] [address] the Medical morning. Branch mirtazapine Yes 30mg Take 2 Univ ers 15 mg 5-03 tablets by ity of tablet 20:54: mouth at [place] [address] bedtime. Medical Branch pioglitazon 0 Yes 30mg Take 1 Univ ers e 30 mg 5-03 tablet by ity of tablet 20:54: mouth in [place] [address] the Medical morning. Branch QUEtiapine 0 Yes 50mg Take 1 Unive rs 50 mg 5-03 tablet by ity of tablet 20:54: mouth in [place] [address] the Medical morning Branch and 1 tablet in the evening. ferrous 2022-0 Yes 325mg Take 1 Univers sulfate 325 5-03 tablet by ity of mg (65 mg 20:54: mouth in [facility] iron) 21 the Medical tablet morning Branch and 1 tablet in the evening. donepeziL 2022-0 Yes 10mg Take 1 Univer s 10 mg 5-03 tablet by ity of tablet 20:54: mouth in [place] [address] the Medical morning. Branch lisinopriL 2022-0 Yes 2.5mg Take 1 Univ ers 2.5 mg 5-03 tablet by ity of tablet 20:54: mouth in [place] [address] the Medical morning. Branch mirtazapine 0 Yes 30 mg = 2 M emoria 15 mg oral 4-12 tab, PO, l tablet 15:22: Bedtime, # Ladan nn 00 180 tab, 1 Refill(s), Pharmacy: [facility] [place] cy #[id number], 165.1, cm, 05/20/22 15:40:00 [employer], Height, 55.909, kg, 05/20/22 15:40:00 [employer], Weight Namenda 10 2022-0 Yes 10 mg = 1 Me moria mg oral 3-21 tab, PO, l tablet 22:29: BID, # 180 Ladan nn 00 tab, 3 Refill(s), Pharmacy: [facility] [place] [place] cy #[id number], 165.1, cm, 05/20/22 15:40:00 [employer], Height, 55.909, kg, 05/20/22 15:40:00 [employer], Weight divalproex 2022-0 Yes 500 mg = 4 M emoria sodium 125 2-27 cap, PO, l mg oral 18:52: Bedtime, # Herm shiva delayed 00 120 cap, 3 release Refill(s), spr[facility] #[id number], 165.1, cm, 05/20/22 15:40:00 [employer], Height, 55.909, kg, 05/20/22 15:40:00 [employer], Weight Aricept 0 Yes 10 mg = 1 Me moria mg oral 2-27 tab, PO, l tablet 18:51: Daily, # [place] 00 90 tab, 1 Refill(s), Pharmacy: [facility] [place] cy #[id number], 165.1, cm, 05/20/22 15:40:00 [employer], Height, 55.909, kg, 05/20/22 15:40:00 [employer], Weight mirtazapine 2022-0 Yes 30 mg = 2 M emoria 15 mg oral 2-21 tab, PO, l tablet 22:24: Bedtime, # Ladan nn 00 60 tab, 2 Refill(s), Pharmacy: [facility] [place] cy #[id number], 165.1, cm, 05/20/22 15:40:00 [employer], Height, 55.909, kg, 05/20/22 15:40:00 [employer], Weight Namenda 10 2022-0 Yes 10 mg = 1 Me moria mg oral 2-21 tab, PO, l tablet 22:23: BID, # 60 Kavon n 00 tab, 3 Refill(s), [id number], 165.1, cm, 05/20/22 15:40:00 [employer], Height, 55.909, kg, 05/20/22 15:40:00 [employer], Weight Aricept 10 Yes 10 mg = 1 Me moria mg oral 2-21 tab, PO, l tablet 22:22: Daily, # [place] 00 30 tab, 3 Refill(s), Pharmacy: [facility] #[id number], 165.1, cm, 05/20/22 15:40:00 [employer], Height, 55.909, kg, 05/20/22 15:40:00 [employer], Weight Depakote Yes 500 mg = 1 Mem oria 500 mg oral 2-21 tab, PO, l enteric 22:21: Bedtime, # Herm sihva coated 00 30 tab, 3 tablet Refill(s), [id number], 165.1, cm, 05/20/22 15:40:00 [employer], Height, 55.909, kg, 05/20/22 15:40:00 [employer], Weight SEROquel 50 2021-03 Yes 50 mg = 1 M emoria mg oral 0-24 tab, PO, l tablet 18:37: BID, # 180 Ladan nn 00 tab, 3 Refill(s), Pharmacy: [facility] #[id number], 165.1, cm, 10/17/21 14:51:00 CDT, Height, 63.693, kg, 10/17/21 14:51:00 CDT, Weight mirtazapine 0 Yes = 1 tab, Me moria 15 mg oral 7-21 PO, l tablet 20:51: Bedtime, # Ladan nn 00 90 tab, 2 Refill(s), Pharmacy: [facility] STORE [id number], 165.1, cm, 10/17/21 14:51:00 CDT, Height, 63.693, kg, 10/17/21 14:51:00 CDT, Weight Remeron 15 No 15 mg = 1 Me moria mg oral 7-21 tab, PO, l tablet 20:05: Bedtime, # Ladan nn 00 30 tab, 3 Refill(s), Pharmacy: [facility] [place] #[id number], 165.1, cm, 10/17/21 14:51:00 CDT, Height, 63.693, kg, 10/17/21 14:51:00 CDT, Weight Depakote ER 2021-0 Yes 500 mg = 1 Memoria 500 mg oral 5-09 tab, PO, l tablet, 15:28: Bedtime, # Herm shiva extended 00 90 tab, 3 release Refill(s), Pharmacy: [facility] [place] [place] #[id number], 167.64, cm, 07/12/21 14:20:00 CDT, Height, 61.818, kg, 07/12/21 14:20:00 CDT, Weight Depakote ER 2021-0 Yes 500 mg = 1 Memoria 500 mg oral 4-15 tab, PO, l tablet, 22:50: Bedtime, # Herm shiva extended 00 30 tab, 3 release Refill(s), [facility] [place] [id number], 167.64, cm, 07/12/21 14:20:00 CDT, Height, 61.818, kg, 07/12/21 14:20:00 CDT, Weight SEROquel 50 2021-0 No 50 mg = 1 M emoria mg oral 3-04 tab, PO, l tablet 17:53: BID, # 180 Ladan nn 00 tab, 3 Refill(s), Pharmacy: [facility] [place] [place] #[id number], 170.18, cm, 05/30/21 13:50:00 [employer], Height, 61.818, kg, 05/30/21 13:50:00 [employer], Weight quetiapine 0 No 50 mg = 1 Me moria 50 MG Oral 3-03 tab, PO, l Tablet 20:14: BID, X 30 Kavon n [Seroquel] 00 day, # 60 tab, 2 Refill(s), [id number], 170.18, cm, 05/30/21 13:50:00 [employer], Height, 61.818, kg, 05/30/21 13:50:00 [employer], Weight quetiapine 0 No 50 mg = 1 Me moria 50 MG Oral 2-10 tab, PO, l Tablet 16:26: Bedtime, # Ladan nn [Seroquel] 00 30 tab, 2 Refill(s), Pharmacy: [facility] #[id number], 165.1, cm, 03/13/21 14:42:00 [employer], Height, 61.818, kg, 03/13/21 14:42:00 [employer], Weight Mirtazapine 2020-03 Yes 15 mg = 1 M emoria 15 MG Oral 2-15 tab, PO, l Tablet 21:11: Bedtime, Kacey leary [Remeron] 00 90 tab, 2 Refill(s), Pharmacy: [facility] #[id number], 165.1, cm, 03/13/21 14:42:00 [employer], Height, 61.818, kg, 03/13/21 14:42:00 [employer], Weight Namzaric 28 2020-03 Yes 1 cap, PO, Memoria mg-10 mg 2-15 Daily, # l oral 21:00: 90 cap, 3 [place] capsule, 00 Refill(s), extended Pharmacy: release [facility] #[id number], 165.1, cm, 03/13/21 14:42:00 [employer]PER[employer], Height, 61.818, kg, 03/13/21 14:42:00 [employer], Weight Dextrometho 2020-03 Yes 1 cap, PO, Memoria rphan 2-15 Q12H, # l Hydrobromid 21:00: 180 cap, 1 Kd e 20 MG / 00 Refill(s), Quinidine Pharmacy: Sulfate 10 [facility] MG Oral [facility] #[id number], Capsule 165.1, cm, [Nuedexta] 03/13/21 14:42:00 [employer]ILD[employer]PER[employer], Height, 61.818, kg, 03/13/21 14:42:00 [employer]ILD[employer]PER[employer]OR, Weight 24 HR 2020-03 Yes 1 cap, PO, Memori a Donepezil 2-15 Daily, # l hydrochlori 21:00: 90 cap, 3 H ermann de 10 MG / 00 Refill(s), Memantine Pharmacy: hydrochlori [facility] de 28 MG cy #[id number], Extended 165.1, cm, Release 03/13/21 Oral 14:42:00 Capsule [employer], [Namzaric] Height, 61.818, kg, 03/13/21 14:42:00 [employer]ILD[employer]PER[employer]OR, Weight Sertraline 2020-03 Yes 50 mg = 1 Me moria 50 MG Oral 2-15 tab, PO, l Tablet 21:00: Daily, # Kd [Zoloft] 00 90 tab, 3 Refill(s), Pharmacy: [facility] #[id number], 165.1, cm, 03/13/21 14:42:00 [employer]ILD[employer]PER[employer], Height, 61.818, kg, 03/13/21 14:42:00 [employer]ILD[employer]PER[employer]OR, Weight Sertraline 0 Yes 25 mg = 1 Me moria 25 MG Oral 6-09 tab, PO, l Tablet 16:19: Daily, # Kd [Zoloft] 00 90 tab, 3 Refill(s), Pharmacy: [facility] #[id number], 167.64, cm, 08/08/20 16:03:00 CDT, Height, 67.273, kg, 08/08/20 16:03:00 CDT, Weight Sertraline Yes 25 mg = 1 Me moria 25 MG Oral 5-12 tab, PO, l Tablet 21:47: Daily, # Kd [Zoloft] 00 30 tab, 4 Refill(s), Pharmacy: [facility] #[id number], 167.64, cm, 08/08/20 16:03:00 CDT, Height, 67.273, kg, 08/08/20 16:03:00 CDT, Weight Dextrometho 2020-0 Yes 1 cap, PO, Memoria rphan 5-12 Q12H, # l Hydrobromid 21:43: 180 cap, 1 [place] e 20 MG / 00 Refill(s), Quinidine [...] # l Hydrobromid 20:12: 180 cap, 1 [place] e 20 MG / 00 Refill(s), Quinidine [...] kg, 12/23/19 14:40:00 CDT, Weight 24 HR 2018-03 Yes 1 cap, PO, Memori a [...] MG Oral [facility] #[id number] Capsule [Nuedexta] Dextrometho Yes = 1 cap, Me moria [...] 1 tablet Co mmon Sulfate Sulfate 7-30 [place] [facility] t 00:00: - [facility] 00 [facility] Aspirin Yes 81 mg = 1 Memor [...] Namzaric Yes Kristi 1 capsule C ommon [place] in the [facility] Aspir-81 Aspir-81 Yes Kristi 1 tablet Co mmon Fontanelle [facility] Viagra Viagra Yes Kristi 1 tablet Common Arley as needed [facility] Lipitor Lipitor Yes Kristi 1 tablet Comm on Fontanelle [facility] Pioglitazon Pioglitazon Yes Kristi 1 tablet Common e HCl e HCl Arley [facility] OneTouch OneTouch Yes Kristi as Common Ultra Test Ultra Test Arley directed [facility] Nuedexta Nuedexta Yes Kristi 1 capsule C ommon Fontanelle [facility] OneTouch OneTouch Yes Kristi as Common Delica Delica Arley directed Spi rit Lancets Lancets - CHI Fine Fine [facility] Vitamin C Vitamin C Yes Kristi as Comm on Plus Plus Fontanelle directed [facility] Lisinopril Lisinopril Yes Kristi 1 tablet Common Arley [facility] Melatonin Melatonin Yes Kristi as Comm on ER ER Arley directed [facility] Vitamin B12 Vitamin B12 Yes Kristi 1 tablet Common Fontanelle [facility] Aspir-81 81 Aspir-81 81 No 1{table QD [...] 50 MG e_eveni ER 50 MG ng} -81 81 Aspir-81 81 No 1{table QD Aspir-81 [...] 50 MG 50 MG ER 50 MG Ferrous Ferrous No Sulfate 325 Sulfate 325 (65 Fe) MG (65 Fe) MG Vitamin B12 Vitamin B12 No 1{table QD 1000 MCG 1000 MCG t} Pioglitazon Pioglitazon No 1{table QD e HCl 30 MG e HCl 30 MG t} Nuedexta Nuedexta No 1{capsu BID 20-10 MG 20-10 MG le} Lisinopril Lisinopril No 2.5 MG 2.5 MG QUEtiapine QUEtiapine No 1{table QD Fumarate ER Fumarate ER t_in_th 50 MG 50 MG e_eveni ng} OneTouch OneTouch No Ultra - Ultra - Lipitor 20 Lipitor 20 No 1{table QD MG MG t} Melatonin Melatonin No ER 10 MG ER 10 MG Namzaric Namzaric No 1{capsu QD 28-10 MG 28-10 MG le_in_t he_even ing} Cetirizine Cetirizine No HCl 10 MG HCl 10 MG Lipitor 20 Lipitor 20 No 1{table QD MG MG t} QUEtiapine QUEtiapine No Fumarate ER Fumarate ER 50 MG 50 MG Atorvastati Atorvastati No QD n Calcium n Calcium 20 MG 20 MG Aspir-81 81 Aspir-81 81 No 1{table QD MG MG t} Vitamin C Vitamin C No Plus 500 MG Plus 500 MG OneTouch OneTouch No BID Delica Delica Lancets Lancets Fine - Fine - Viagra 100 Viagra 100 No 1{table QD MG MG t_as_ne eded} Lisinopril Lisinopril No 1{table QD Lisinopril 2.5 MG 2.5 MG t} 2.5 MG QUEtiapine QUEtiapine No QUEtiapine Fumarate ER Fumarate ER Fumarate 50 MG 50 MG ER 50 MG Cetirizine Cetirizine No 1{table Cetirizine HCl 10 MG HCl 10 MG t} HCl 10 MG Pioglitazon Pioglitazon No 1{table QD Pioglitazo e HCl 30 MG e HCl 30 MG t} ne HCl 30 MG Vitamin C Vitamin C No Vitamin C Plus 500 MG Plus 500 MG Plus 500 MG Atorvastati Atorvastati No Atorvastat n Calcium n Calcium in Calcium 20 MG 20 MG 20 MG Lisinopril Lisinopril No Lisinopril 2.5 MG 2.5 MG 2.5 MG Mirtazapine Mirtazapine No 1{table QD Mirtazapin 15 MG 15 MG t_at_be e 15 MG dtime} Cetirizine Cetirizine No Cetirizine HCl 10 MG HCl 10 MG HCl 10 MG Vitamin B12 Vitamin B12 No 1{table QD Vitamin 1000 MCG 1000 MCG t} B12 1000 MCG Ferrous Ferrous No Ferrous Sulfate 325 Sulfate 325 Sulfate (65 Fe) MG (65 Fe) MG 325 (65 Fe) MG OneTouch OneTouch No BID OneTouch Delica Delica Delica Lancets Lancets Lancets Fine - Fine - Fine - QUEtiapine QUEtiapine No 1{table QD QUEtiapine Fumarate ER Fumarate ER t_in_th Fumarate 50 MG 50 MG e_eveni ER 50 MG ng} Ferrous Ferrous No 1{table BID Ferrous Sulfate 325 Sulfate 325 t} Sulfate (65 Fe) MG (65 Fe) MG 325 (65 Fe) MG Memantine Memantine No 1{table QD Memantine HCl 10 MG HCl 10 MG t} HCl 10 MG OneTouch OneTouch No OneTouch Ultra - Ultra - Ultra - Lipitor 20 Lipitor 20 No 1{table QD Lipitor 20 MG MG t} MG Lisinopril Lisinopril No 1{table QD Lisinopril 2.5 MG 2.5 MG t} 2.5 MG QUEtiapine QUEtiapine No QUEtiapine Fumarate ER Fumarate ER Fumarate 50 MG 50 MG ER 50 MG Cetirizine Cetirizine No 1{table Cetirizine HCl 10 MG HCl 10 MG t} HCl 10 MG Pioglitazon Pioglitazon No 1{table QD Pioglitazo e HCl 30 MG e HCl 30 MG t} ne HCl 30 MG Vitamin C Vitamin C No Vitamin C Plus 500 MG Plus 500 MG Plus 500 MG Atorvastati Atorvastati No Atorvastat n Calcium n Calcium in Calcium 20 MG 20 MG 20 MG Lisinopril Lisinopril No Lisinopril 2.5 MG 2.5 MG 2.5 MG Mirtazapine Mirtazapine No 1{table QD Mirtazapin 15 MG 15 MG t_at_be e 15 MG dtime} Cetirizine Cetirizine No Cetirizine HCl 10 MG HCl 10 MG HCl 10 MG Vitamin B12 Vitamin B12 No 1{table QD Vitamin 1000 MCG 1000 MCG t} B12 1000 MCG Ferrous Ferrous No Ferrous Sulfate 325 Sulfate 325 Sulfate (65 Fe) MG (65 Fe) MG 325 (65 Fe) MG OneTouch OneTouch No BID OneTouch Delica Delica Delica Lancets Lancets Lancets Fine - Fine - Fine - QUEtiapine QUEtiapine No 1{table QD QUEtiapine Fumarate ER Fumarate ER t_in_th Fumarate 50 MG 50 MG e_eveni ER 50 MG ng} Ferrous Ferrous No 1{table BID Ferrous Sulfate 325 Sulfate 325 t} Sulfate (65 Fe) MG (65 Fe) MG 325 (65 Fe) MG Memantine Memantine No 1{table QD Memantine HCl 10 MG HCl 10 MG t} HCl 10 MG OneTouch OneTouch No OneTouch Ultra - Ultra - Ultra - Lipitor 20 Lipitor 20 No 1{table QD Lipitor 20 MG MG t} MG QUEtiapine QUEtiapine No QUEtiapine Fumarate ER Fumarate ER Fumarate 50 MG 50 MG ER 50 MG Lipitor 20 Lipitor 20 No 1{table QD Lipitor 20 MG MG t} MG QUEtiapine QUEtiapine No 1{table QD QUEtiapine Fumarate ER Fumarate ER t_in_th Fumarate 50 MG 50 MG e_eveni ER 50 MG ng} Lisinopril Lisinopril No 1{table QD Lisinopril 2.5 MG 2.5 MG t} 2.5 MG Vitamin C Vitamin C No Vitamin C Plus 500 MG Plus 500 MG Plus 500 MG Atorvastati Atorvastati No Atorvastat n Calcium n Calcium in Calcium 20 MG 20 MG 20 MG Lisinopril Lisinopril No Lisinopril 2.5 MG 2.5 MG 2.5 MG Mirtazapine Mirtazapine No 1{table QD Mirtazapin 15 MG 15 MG t_at_be e 15 MG dtime} Vitamin B12 Vitamin B12 No 1{table QD Vitamin 1000 MCG 1000 MCG t} B12 1000 MCG Cetirizine Cetirizine No 1{table Cetirizine HCl 10 MG HCl 10 MG t} HCl 10 MG Ferrous Ferrous No Ferrous Sulfate 325 Sulfate 325 Sulfate (65 Fe) MG (65 Fe) MG 325 (65 Fe) MG Ferrous Ferrous No 1{table BID Ferrous Sulfate 325 Sulfate 325 t} Sulfate (65 Fe) MG (65 Fe) MG 325 (65 Fe) MG OneTouch OneTouch No OneTouch Ultra - Ultra - Ultra - Cetirizine Cetirizine No Cetirizine HCl 10 MG HCl 10 MG HCl 10 MG Memantine Memantine No 1{table QD Memantine HCl 10 MG HCl 10 MG t} HCl 10 MG Pioglitazon Pioglitazon No Pioglitazo e HCl 30 MG e HCl 30 MG ne HCl 30 MG OneTouch OneTouch No BID OneTouch Delica Delica Delica Lancets Lancets Lancets Fine - Fine - Fine - OneTouch OneTouch No BID OneTouch Delica Delica [...] MG ne HCl 30 MG Immunizations Ordered Filled Immunization Date Status Comments Sourc e Immunization Name Name FLUZONE HIGH DOSE FLUZONE HIGH DOSE 2022-02-28 Completed [facility] OVER 65 OVER 65 16:45:00 - [facility] FLUZONE HIGH DOSE FLUZONE HIGH DOSE 2022-02-28 Completed [facility] OVER 65 OVER 65 16:45:00 [facility] Moderna COVID-19 Moderna COVID-19 2020-09-21 Completed [facility] Vaccine Vaccine 09:02:00 - [facility] Moderna COVID-19 Moderna COVID-19 2020-09-21 Completed [facility] Vaccine Vaccine 09:02:00 [facility] Moderna COVID-19 Moderna COVID-19 2020-09-21 Completed [facility] Vaccine Vaccine 09:02:00 [facility] Moderna COVID-19 Moderna COVID-19 2020-09-21 Completed Co [facility] Vaccine Vaccine 09:02:00 [facility] Moderna COVID-19 Moderna COVID-19 2020-09-21 Completed [facility] Vaccine Vaccine 09:02:00 [facility] Moderna COVID-19 Moderna COVID-19 2020-08-24 Completed [facility] Vaccine Vaccine 07:45:00 [facility] Moderna COVID-19 Moderna COVID-19 2020-08-24 Completed [facility] Vaccine Vaccine 07:45:00 [facility] Moderna COVID-19 Moderna COVID-19 2020-08-24 Completed [facility] Vaccine Vaccine 07:45:00 [facility] Moderna COVID-19 Moderna COVID-19 2020-08-24 Completed [facility] Vaccine Vaccine 07:45:00 [facility] Moderna COVID-19 Moderna COVID-19 2020-08-24 Completed [facility] Vaccine Vaccine 07:45:00 [facility] Moderna COVID-19 Moderna COVID-19 2020-08-24 Completed [facility] Vaccine Vaccine 07:45:00 [facility] Moderna COVID-19 Moderna COVID-19 2020-08-24 Completed [facility] Vaccine Vaccine 07:45:00 - [facility] PNEUMAVAX 23 PNEUMAVAX 23 2019-11-25 Completed [facility] rit 14:53:00 - [facility] PNEUMAVAX 23 PNEUMAVAX 23 2019-11-25 Completed [facility]pi rit 14:53:00 - [facility] PNEUMAVAX 23 PNEUMAVAX 23 2019-11-25 Completed [facility] rit 14:53:00 - [facility] PNEUMAVAX 23 PNEUMAVAX 23 2019-11-25 Completed [facility] rit 14:53:00 - [facility] PNEUMAVAX 23 PNEUMAVAX 23 2019-11-25 Completed [facility] rit 14:53:00 - [facility] PNEUMAVAX 23 PNEUMAVAX 23 2019-11-25 Completed [facility] rit 14:53:00 - [facility] PNEUMAVAX 23 PNEUMAVAX 23 2019-11-25 Completed [facility] 14:53:00 - [facility] PNEUMAVAX 23 PNEUMAVAX 23 2019-11-25 Completed [facility] 00:00:00 - [facility] FluAD FluAD 2018-12-06 Completed [facility] 17:05:00 - [facility] FluAD FluAD 2018-12-06 Completed [facility] 17:05:00 - [facility] FluAD FluAD 2018-12-06 Completed [facility] 17:05:00 - [facility] FluAD FluAD 2018-12-06 Completed [facility] 17:05:00 - [facility] [facility] 2018-12-06 [facility] 17:05:00 - [facility] FluAD FluAD 2018-12-06 [facility] 17:05:00 - [facility] FluAD FluAD 2018-12-06 [facility] 17:05:00 - [facility] FluAD FluAD 2018-12-06 [facility]pleted [facility] 00[facility]00:00 - [facility] Prevnar 13 Prevnar 2018-07-27 Completed [facility] -Pneumonia Vaccine -Pneumonia Vaccine 13:46:00 - [facility] Prevnar 13 Prevnar 13 2018-07-27 [facility]pleted [facility] -[facility]neumonia Vaccine -Pneumonia Vaccine 13:46:00 - [facility] Prevnar 13 Prevnar 13 2018-07-27 [facility]pleted [facility] -[facility]onia Vaccine -Pneumonia Vaccine 13:46:00 - [facility] Prevnar 13 Prevnar 13 2018-07-27 [facility] -[facility]neumonia Vaccine -Pneumonia Vaccine 13:46:00 - [facility] Prevnar 13 Prevnar 13 2018-07-27 [facility]pleted [facility] -[facility]neumonia Vaccine -Pneumonia Vaccine 13:46:00 - [facility] Prevnar 13 Prevnar 13 2018-07-27 [facility]pleted [facility] -[facility]neumonia Vaccine -Pneumonia Vaccine 13:46:00 - [facility] Prevnar 13 Prevnar 13 2018-07-27 [facility]pleted [facility] -Pneumonia Vaccine -Pneumonia Vaccine 13:46:00 - [facility] Prevnar 13 Prevnar 13 2018-07-27 [facility]pleted [facility] -[facility] Vaccine -Pneumonia Vaccine 00:00:00 - [facility] FluAD FluAD 2018 Com[facility] 15:05:00 - [facility] FluAD FluAD 2018 Completed [facility] 15:05:00 - [facility] FluAD FluAD 2018 Completed [facility] 15:05:00 - [facility] FluAD FluAD 2018 Completed [facility] 15:05:00 - [facility] FluAD FluAD 2018 Completed [facility] 15:05:00 - [facility] FluAD FluAD 2018 Com[facility] 15:05:00 - [facility] FluAD FluAD 2018 Completed [facility] 15:05:00 - [facility] FLUZONE HIGH DOSE FLUZONE HIGH DOSE 2017-04-28 Completed [facility] OVER 65 OVER 65 15:54:00 - [facility] FLUZONE HIGH DOSE FLUZONE HIGH DOSE 2017-04-28 Completed [facility] OVER 65 OVER 65 15:54:00 - [facility] FLUZONE HIGH DOSE FLUZONE HIGH DOSE 2017-04-28 [facility]pleted [facility] OVER 65 OVER 65 15:54:00 - [facility] FLUZONE HIGH DOSE FLUZONE HIGH DOSE 2017-04-28 [facility]pleted [facility] OVER 65 OVER 65 15:54:00 - [facility] FLUZONE HIGH DOSE FLUZONE HIGH DOSE 2017-04-28 Completed [facility] OVER 65 OVER 65 15:54:00 [facility] FLUZONE HIGH DOSE FLUZONE HIGH DOSE 2017-04-28 Completed [facility] OVER 65 OVER 65 15:54:00 [facility] FLUZONE HIGH DOSE FLUZONE HIGH DOSE 2017-04-28 Completed [facility] OVER 65 OVER 65 15:54:00 - [facility] Moderna COVID-19 Moderna COVID-19 Unknown [facility]ine [facility] Moderna COVID-19 Moderna COVID-19 Unknown Completed [facility] Vaccine Vaccine [facility] FluAD FluAD Unknown Completed [facility] FluAD FluAD Unknown Completed [facility] PNEUMAVAX 23 PNEUMAVAX 23 Unknown Completed [facility] Prevnar 13 Prevnar 13 Unknown Completed [facility]ine -Pneumonia Vaccine - [facility] FLUZONE HIGH DOSE FLUZONE HIGH DOSE Unknown Completed [facility] OVER 65 OVER 65 - [facility] FLUZONE HIGH DOSE FLUZONE HIGH DOSE Unknown Completed [facility] OVER 65 OVER 65 - [facility] Moderna COVID-19 Moderna COVID-19 Unknown [facility] Moderna COVID-19 Moderna COVID-19 Unknown Completed [facility] Vaccine Vaccine [facility] FluAD FluAD Unknown Completed [facility] FluAD FluAD Unknown Completed [facility] PNEUMAVAX 23 PNEUMAVAX 23 Unknown Completed [facility] rit [facility] Prevnar 13 Prevnar 13 Unknown Completed [facility] -[facility] Vaccine -Pneumonia Vaccine [facility] FLUZONE HIGH DOSE FLUZONE HIGH DOSE Unknown Completed [facility] OVER 65 OVER 65 - [facility] FLUZONE HIGH DOSE FLUZONE HIGH DOSE Unknown Completed [facility] OVER 65 OVER 65 - [facility] Moderna COVID-19 Moderna COVID-19 Unknown Completed [facility] Vaccine Vaccine [facility] Moderna COVID-19 Moderna COVID-19 Unknown Completed [facility] Vaccine Vaccine - [facility] FluAD FluAD Unknown [facility] FluAD FluAD Unknown Completed [facility] PNEUMAVAX 23 PNEUMAVAX 23 Unknown Completed [facility] S[facility] Prevnar 13 Prevnar 13 Unknown Completed [facility] -Pneumonia Vaccine -Pneumonia Vaccine - [facility] FLUZONE HIGH DOSE FLUZONE HIGH DOSE Unknown Completed [facility] OVER 65 OVER 65 [facility] FLUZONE HIGH DOSE FLUZONE HIGH DOSE Unknown Completed [facility] OVER 65 OVER 65 - [facility] Hx influenza Unknown Completed [facility] vaccine-unspecified [place] Vital Signs Vital Name Observation Time Observation Value Comments Source Systolic blood 2022-07-30 23:48:00 99 mm[Hg] [facility] Diastolic blood 2022-07-30 23:48:00 62 mm[Hg] Unive [facility] Heart rate 2022-07-30 23:48:00 65 /min [facility] Body temperature 2022-07-30 23:48:00 36.67 O[facility] Respiratory rate 2022-07-30 23:48:00 22 /min [facility] Body weight 2022-07-30 23:48:00 58.06 kg [facility] Oxygen saturation in 2022-07-30 23:48:00 100 /min [facility] blood by [facility] Pulse oximetry Branch height 2022-02-28 15:00:00 67.00 [in_i] [facility] weight 2022-02-28 15:00:00 134.2 [lb_av] [facility] temperature 2022-02-28 15:00:00 98.0 [degF] [facility] bmi 2022-02-28 15:00:00 21.02 kg/m2 [facility] oximetry 2022-02-28 15:00:00 100 % [facility] respiratory rate 2022-02-28 15:00:00 16 /min [facility] blood pressure 2022-02-28 15:00:00 138 mm[Hg] [facility] - systolic [facility] blood pressure 2022-02-28 15:00:00 78 mm[Hg] [facility] - diastolic [facility] height 2021-07-30 11:40:00 67.00 [in_i] [facility] weight 2021-07-30 11:40:00 135.2 [lb_av] [facility] temperature 2021-07-30 11:40:00 97.4 [degF] [facility] bmi 2021-07-30 11:40:00 21.17 kg/m2 [facility] oximetry 2021-07-30 11:40:00 98 % [facility] respiratory rate 2021-07-30 11:40:00 16 /min [facility] blood pressure 2021-07-30 11:40:00 138 mm[Hg] [facility] - systolic [facility] blood pressure 2021-07-30 11:40:00 65 mm[Hg] [facility] - diastolic [facility] Systolic (mm Hg) 2022-08-20 20:33:00 Braulio [facility] [place] Diastolic (mm Hg) 2022-08-20 20:33:00 Mem o[facility] [place] Heart Rate 2022-08-20 20:33:00 [facility] Height 2022-08-20 20:33:00 5 [ft_i] [facility] [place] Weight 2022-08-20 20:33:00 [facility] BMI Calculated 2022-08-20 20:33:00 Mem[facility] Systolic (mm Hg) 2022-05-20 21:24:00 Braulio [facility] Diastolic (mm Hg) 2022-05-20 21:24:00 Mem [facility] Heart Rate 2022-05-20 21:24:00 [facility] Height 2022-05-20 21:24:00 5 [ft_i] [facility] Weight 2022-05-20 21:24:00 [facility] [place] BMI Calculated 2022-05-20 21:24:00 [facility] [place] Weight 2021-10-17 19:27:00 [facility] [place] BMI Calculated 2021-10-17 19:27:00 [facility] [place] Systolic (mm Hg) 2021-10-17 19:27:00 Braulio rial [facility]d Diastolic (mm Hg) 2021-10-17 19:27:00 Mem [facility] Heart Rate 2021-10-17 19:27:00 [facility] [place] Respitory Rate 2021-10-17 19:27:00 [facility] [place] Height 2021-10-17 19:27:00 165.1 cm [facility] [place] Systolic (mm Hg) 2021-07-12 19:20:00 [facility]io [facility] [place] Diastolic (mm Hg) 2021-07-12 19:20:00 Mem [facility] [place] Heart Rate 2021-07-12 19:20:00 [facility] Respitory Rate 2021-07-12 19:20:00 [facility] Height 2021-07-12 19:20:00 167.64 cm [facility] Weight 2021-07-12 19:20:00 [facility] BMI Calculated 2021-07-12 19:20:00 [facility] Systolic (mm Hg) 2021-05-30 19:38:00 [facility] [place] Diastolic (mm Hg) 2021-05-30 19:38:00 [facility] [place] Heart Rate 2021-05-30 19:38:00 [facility] [place] Respitory Rate 2021-05-30 19:38:00 [facility] Height 2021-05-30 19:38:00 170.18 cm [facility] [place] Weight 2021-05-30 19:38:00 [facility] [place] BMI Calculated 2021-05-30 19:38:00 [facility] [place] Systolic (mm Hg) 2021-03-13 20:30:00 Braulio [facility] [place] Diastolic (mm Hg) 2021-03-13 20:30:00 Mem [facility] [place] Heart Rate 2021-03-13 20:30:00 [facility] [place] Respitory Rate 2021-03-13 20:30:00 [facility] [place] Height 2021-03-13 20:30:00 165.1 cm [facility] Weight 2021-03-13 20:30:00 [facility] [place] BMI Calculated 2021-03-13 20:30:00 [facility] [place] Systolic (mm Hg) 2020-11-14 19:27:00 Braulio [facility] [place] Diastolic (mm Hg) 2020-11-14 19:27:00 Mem [facility] Heart Rate 2020-11-14 19:27:00 [facility] Respitory Rate 2020-11-14 19:27:00 [facility] Height 2020-11-14 19:27:00 167.64 cm [facility] [place] Weight 2020-11-14 19:27:00 [facility] [place] BMI Calculated 2020-11-14 19:27:00 Mem[facility] Systolic (mm Hg) 2020-08-08 21:03:00 Bra[facility]io [facility] [place] Diastolic (mm Hg) 2020-08-08 21:03:00 Mem [facility] Heart Rate 2020-08-08 21:03:00 [facility] [place] Respitory Rate 2020-08-08 21:03:00 [facility] [place] Height 2020-08-08 21:03:00 167.64 cm [facility] Weight 2020-08-08 21:03:00 [facility] BMI Calculated 2020-08-08 21:03:00 [facility] [place] Systolic (mm Hg) 2019-12-23 19:40:00 Bra[facility]io [facility] [place] Diastolic (mm Hg) 2019-12-23 19:40:00 Mem [facility] [place] Heart Rate 2019-12-23 19:40:00 [facility] Respitory Rate 2019-12-23 19:40:00 [facility] [place] Height 2019-12-23 19:40:00 172.72 cm [facility] Weight 2019-12-23 19:40:00 [facility] [place] BMI Calculated 2019-12-23 19:40:00 [facility] [place] Systolic (mm Hg) 2019-01-05 19:15:00 Braulio [facility] [place] Diastolic (mm Hg) 2019-01-05 19:15:00 Mem [facility] [place] Heart Rate 2019-01-05 19:15:00 [facility] Respitory Rate 2019-01-05 19:15:00 [facility] [place] Height 2019-01-05 19:15:00 167.64 cm [facility] [place] Weight 2019-01-05 19:15:00 [facility] [place] BMI Calculated 2019-01-05 19:15:00 Memori al [facility] Systolic (mm Hg) 2018-04-22 20:43:00 Braulio lieberman Kd Diastolic (mm Hg) 2018-04-22 20:43:00 Mem [facility] [place] Heart Rate 2018-04-22 20:43:00 [facility] [place] Height 2018-04-22 20:43:00 170.18 cm [facility] [place] Weight 2018-04-22 20:43:00 [facility] BMI Calculated 2018-04-22 20:43:00 Arthurori al Kd Procedures Procedure Date / Time Performed Performing Clinician [facility] e CONSENT/REFUSAL FOR 2022-07-30 23:22:05 Doctor Unassigned, No Un [facility] DIAGNOSIS AND Name Medical Branch TREATMENT Encounters Start End Encounter Admission Attending Care Care Encounter Source Date/Time Date/Time Type Type Clinicians Facility Department ID 2022-10-28 Outpatient Neff, STLMLC STLMLC [id number] Common 08:05:00 Avnee [id number] [facility] 2022-10-22 Outpatient Enff, STLMLC STLMLC [id number] Common 14:15:00 Avnee [id number] [facility] 2022-10-06 Outpatient STLMLC STLMLC [id number] Common 09:13:00 [id number] [facility] 2022-06-26 Outpatient Capri, STLMLC STLMLC [id number] Common 15:35:00 Crista [id number] [facility] 2022-06-24 Outpatient Capri, STLMLC STLMLC [id number] Common 14:52:00 Crista 20000 [facility] 2022-06-11 Outpatient Capri, STLMLC STLMLC [id number] Common 10:22:00 Crista 86906 [facility] 2022-05-01 Outpatient SUAREZ, Na STLMLC STLMLC [id number] Common 16:47:00 [id number] [facility] 2022-02-26 Outpatient Suarez, Na STLMLC STLMLC [id number] Common 13:48:01 [id number] [facility] 2021-10-29 Outpatient Suarez, Na STLMLC STLMLC [id number] Common 14:56:04 [id number] [facility] 2021-04-24 Outpatient Suarez, Na STLMLC STLMLC [id number] Common 14:00:35 [id number] [facility] 2021-04-24 Outpatient Suarez, Na STLMLC STLMLC [id number] 2 Common 13:59:58 [id number] [facility] 2021-04-24 Outpatient Suarez, Na STLMLC STLMLC [id number] Common 13:12:28 [id number] [facility] 2021-04-24 Outpatient Suarez, Na STLMLC STLMLC [id number] Common 13:08:41 [id number] [facility] 2021-04-24 Outpatient Suarez, Na STLMLC STLMLC [id number] 2 Common 12:37:16 [id number] [facility] 2021-04-24 Outpatient Suarez, Na STLMLC STLMLC [id number] Common 12:11:44 [id number] [facility] 2021-04-24 Outpatient Suarez, Na STLMLC STLMLC [id number] 2 Common 12:04:00 [id number] [facility] 2021-04-24 Outpatient Suarez, Na STLMLC STLMLC [id number] Common 11:53:30 [id number] [facility] 2021-04-24 Outpatient Suarez, Na STLMLC STLMLC [id number] 2 Common 11:40:44 [id number] [facility] 2021-04-24 Outpatient Suarez, Na STLMLC STLMLC [id number] Common 11:38:24 [id number] [facility] 2021-04-24 Outpatient Suarez, Na STLMLC STLMLC [id number] Common 11:29:04 [id number] [facility] 2021-04-24 Outpatient Sangita Suarez STLMLC STLMLC [id number] Common 11:27:02 [id number] [facility] 2022-12-18 2022-12-18 Ambulatory MHIE MNA [id number] Memoria 20:30:00 20:30:00 Pre-Reg Neurology 19 l Lani Yi 2022-12-18 2022-12-18 Outpatient MHIE MHIE [id number] Memoria 15:30:00 15:30:00 19 raquel Yi 2022-12-18 2022-12-18 Outpatient Carlos Manuel, MHMISCHER MHMISCHER [id number] 15:30:00 15:30:00 Jefry 19 Slim 2022-08-20 2022-08-21 Outpatient MHIE MNA [id number] Memoria 20:30:00 04:59:59 Neurology 18 l Lani Yi 2022-08-20 2022-08-20 Outpatient VANDANA HorowitzMISCHER MHMISCHER [id number] 15:30:00 23:59:59 Jefry 18 Slim 2022-08-20 2022-08-20 Outpatient MHIE MHIE [id number] Memoria 15:30:00 15:30:00 18 raquel Yi 2022-07-30 2022-07-30 Emergency [facility] [id number] Univers 18:49:00 21:14:00 , MARIA LUISA huang [facility] 2022-07-30 2022-07-30 [facility] [id number] Univers 18:49:00 21:14:00 , Maria Luisa DORADO [id number] [facility] [id number] [facility] [id number] [address] 2022-06-26 2022-06-26 (TEL) STLMLC STLMLC [id number] Co mmon 00:00:00 00:00:00 [facility] 2022-06-24 2022-06-24 (TEL) STLMLC STLMLC [id number] Co mmon 00:00:00 00:00:00 [facility] 2022-05-20 2022-05-21 Outpatient MHIE MNA [id number] Memoria 21:30:00 05:59:59 Neurology 17 l Lani Yi 2022-05-21 2022-05-21 (TEL) STLMLC STLMLC [id number] Co mmon 00:00:00 00:00:00 [facility] 2022-05-20 2022-05-20 Outpatient Carlos Manuel MHMISCHER MHMISCHER [id number] 15:30:00 23:59:59 Jefry 17 Slim 2022-05-20 2022-05-20 Outpatient MHIE MHIE [id number] Memoria 15:30:00 15:30:00 17 raquel Yi 2022-02-28 2022-02-28 SUB ANNUAL STLMLC STLMLC [id number] Common 00:00:00 00:00:00 [facility] VISIT [facility] 2022-01-17 2022-01-17 Ambulatory nullFlavo MNA [id number] Memoria 20:15:00 20:15:00 Pre-Reg r Neurology 16 l Lani Yi 2022-01-17 2022-01-17 Outpatient MHIE MHIE [id number] Memoria 15:15:00 15:15:00 16 raquel Yi 2022-01-17 2022-01-17 Outpatient VANDANA HorowitzMISCHER MHMISCHER [id number] 15:15:00 15:15:00 Jefry 16 Slim 2021-10-17 2021-10-18 Outpatient nullFlavo MNA [id number] Memoria 19:30:00 04:59:59 r Neurology 15 l Lani Yi 2021-10-17 2021-10-17 Outpatient Carlos Manuel MHMISCHER MHMISCHER [id number] 14:30:00 23:59:59 Jefry 15 Slim 2021-10-17 2021-10-17 Outpatient MHIE MHIE [id number] Memoria 14:30:00 14:30:00 15 raquel Yi 2021-07-30 2021-07-30 OFFICE STLMLC STLMLC [id number] Co mmon 00:00:00 00:00:00 VISIT [facility] LEVEL 4 [facility] 2021-07-16 2021-07-16 (TEL) STLMLC STLMLC [id number] Co mmon 00:00:00 00:00:00 [facility] 2021-07-12 2021-07-13 Outpatient nullFlavo MNA [id number] Memoria 18:45:00 04:59:59 r Neurology 14 l Lani Yi 2021-07-12 2021-07-12 Outpatient VANDANA HorowitzMISCHER MISCHER [id number] 13:45:00 23:59:59 Jefry 14 Slim 2021-07-12 2021-07-12 Outpatient MHIE MHIE [id number] Memoria 13:45:00 13:45:00 14 raquel Yi 2021-06-21 2021-06-21 (TEL) STLMLC STLMLC [id number] Co mmon 00:00:00 00:00:00 [facility] 2021-05-30 2021-05-31 Outpatient nullFlavo MNA [id number] Memoria 19:30:00 05:59:59 r Neurology 13 l Lani Yi 2021-05-30 2021-05-30 Outpatient JOSH HorowitzSCHER MHMISCHER [id number] 13:30:00 23:59:59 Jefry 13 Slim 2021-05-30 2021-05-30 Outpatient MHIE MHIE [id number] Memoria 13:30:00 13:30:00 13 raquel Yi 2021-03-13 2021-03-14 Outpatient nullFlavo MNA [id number] Memoria 20:30:00 05:59:59 r Neurology 12 raquel Yi 2021-03-13 2021-03-13 Outpatient JOSH HorowitzSCHER MISCHER [id number] 14:30:00 23:59:59 Jefry 12 Slim 2021-03-13 2021-03-13 Outpatient MHIE MHIE [id number] Memoria 14:30:00 14:30:00 12 raquel Yi 2020-11-14 2020-11-15 Outpatient nullFlavo MNA [id number] [facility] 19:15:00 04:59:59 r Neurology 11 l Lani Yi 2020-11-14 2020-11-14 Outpatient JOSH HorowitzSCHER MISCHER [id number] 14:15:00 23:59:59 Jefry 11 Slim 2020-11-14 2020-11-14 Outpatient MHIE MHIE [id number] Memoria 14:15:00 14:15:00 11 raquel Yi 2020-09-21 2020-09-21 (COVID STLMLC STLMLC [id number] Co mmon 00:00:00 00:00:00 Inj) COVID Spi rit Injection - [facility] 2020-09-04 2020-09-04 (TEL) STLMLC STLMLC [id number] Co mmon 00:00:00 00:00:00 [facility] 2020-08-24 2020-08-24 (COVID STLMLC STLMLC [id number] Co mmon 00:00:00 00:00:00 Inj) COVID Spi rit Injection - [facility] 2020-08-08 2020-08-09 Outpatient nullFlavo MNA [id number] Mem[facility] 20:30:00 04:59:59 r Neurology 10 raquel Ruizann 2020-08-08 2020-08-08 Outpatient [facility] [id number] 15:30:00 23:59:59 Jefry 10 Slim 2020-08-08 2020-08-08 Outpatient MHIE MHIE [id number] Memoria 15:30:00 15:30:00 10 raquel Yi 2020-06-21 2020-06-21 Ambulatory nullFlavo MNA [id number] Mem[facility] 19:15:00 19:15:00 Pre-Reg r Neurology 09 raquel Ruizann 2020-06-21 2020-06-21 Outpatient MHIE MHIE [id number] Memoria 14:15:00 14:15:00 09 raquel Yi 2020-06-21 2020-06-21 Outpatient JOSH HorowitzSCHER MISCHER [id number] 14:15:00 14:15:00 Jefry 09 Slim 2020-04-16 2020-04-16 Outpatient STLMLC STLMLC [id number] Common 00:00:00 00:00:00 [facility] 2020-03-09 2020-03-09 Outpatient STLMLC STLMLC [id number] Common 00:00:00 00:00:00 [facility] 2019-12-28 2019-12-28 Outpatient STLMLC STLMLC [id number] Common 00:00:00 00:00:00 [facility] 2019-12-23 2019-12-24 Outpatient nullFlavo MNA [id number] Memoria 19:30:00 04:59:59 r Neurology 08 raquel Yi 2019-12-23 2019-12-23 Outpatient VANDANA HorowitzVARAJESH [facility] [id number] 14:30:00 23:59:59 Jefry Julio C Slim 2019-12-23 2019-12-23 Outpatient MHIE VANDANAIE [id number] [facility] 14:30:00 14:30:00 08 l Kd 2019-12-22 2019-12-22 Outpatient STLMLC STLMLC [id number] Common 00:00:00 00:00:00 [facility] 2019-12-16 2019-12-16 [facility] [id number] Common 15:50:00 15:50:00 t Specialty/U Sp fabiana Specialty rology - [facility] 2019-12-15 2019-12-15 Out[facility] [id number] Common 14:00:00 14:00:00 t Specialty/U Sp fabiana Specialty rology - [facility] 2019-11-25 2019-11-25 Out[facility] [id number] Common 13:20:00 13:20:[address] [employer] [address] [facility] 2019-11-06 2019-11-06 [facility] [id number] Common 21:01:00 21:01:[address] [facility] 2019-09-14 2019-09-14 [facility] [id number] Common 11:40:00 11:40:[address] [facility] 2019-08-14 2019-08-14 Out[facility] [id number] Common 05:06:00 05:06:[address] [facility] 2019-07-08 2019-07-08 Ambulatory nullFlavo MNA [id number] Memoria 20:00:00 20:00:00 Pre-Reg r Neurology 06 l [place] 2019-07-08 2019-07-08 Outpatient MHIE MHIE [id number] Memoria 15:00:00 15:00:00 06 raquel [place] 2019-07-08 2019-07-08 Outpatient Carlos Manuel MHMISCHER MISCHER [id number] 15:00:00 15:00:00 Jefry Julio Slim 2019-07-07 2019-07-07 Ambulatory nullFlavo MNA [id number] Memoria 19:15:00 19:15:00 Pre-Reg r Neurology 07 l Lani [place] 2019-07-07 2019-07-07 Outpatient MHIE MHIE [id number] Memoria 14:15:00 14:15:00 07 raquel Yi 2019-07-07 2019-07-07 Outpatient VANDANA HorowitzMISCHER MISCHER [id number] 14:15:00 14:15:00 Jefry 07 Slim 2019-03-07 2019-03-07 [facility] [id number] Common 15:00:00 15:00:[address] [facility] 2019-01-05 2019-01-06 Outpatient nullFlavo MNA [id number] Memoria 19:15:00 04:59:59 r Neurology 05 l [place] 2019-01-05 2019-01-05 Outpatient Carlos Manuel MISCHER MISCHER [id number] 14:15:00 23:59:59 Jefry 05 Slim 2019-01-05 2019-01-05 Outpatient MHIE MHIE [id number] Memoria 14:15:00 14:15:00 05 raquel [place] 2018-12-06 2018-12-06 Out[facility] [id number] Common 15:20:00 15:20:[address] [facility] 2018-11-23 2018-11-23 Ambulatory nullFlavo MNA [id number] Memoria 14:00:00 14:00:00 Pre-Reg r Neurology 04 l Lani Ruizann 2018-11-23 2018-11-23 [facility] [id number] Common 10:00:00 10:00:[address] [facility] 2018-11-23 2018-11-23 Outpatient JOSH HorowitzSCHER MISCHER [id number] 09:00:00 09:00:00 Jefry 04 Slim 2018-10-14 2018-10-14 Outpatient MHIE MHIE [id number] Memoria 11:30:00 11:30:00 04 raquel Kd 2018-07-27 2018-07-27 [facility] [id number] Common 13:00:00 13:00:00 t [employer] [address] [facility] 2018-04-28 2018-04-28 Out[facility] [id number] Common 14:00:00 14:00:00 [address] [employer] [address] [facility] 2018-04-22 2018-04-23 Outpatient nullFlavo MNA [id number] Memoria 20:15:00 05:59:59 r Neurology 03 l [place] Kd 2018-04-22 2018-04-22 Outpatient JOSH HorowitzSCHKAYLEEN [facility] [id number] 14:15:00 23:59:59 Jefry Ish Slim 2018-04-22 2018-04-22 Outpatient MHIE MHIE [id number] Memoria 14:15:00 14:15:00 03 raquel Kd 2018-03-26 2018-03-26 Ambulatory nullFlavo MNA [id number] Memoria 20:30:00 20:30:00 Pre-Reg r Neurology 02 l [place] Kd 2018-03-26 2018-03-26 Outpatient MHIE MHIE [id number] Memoria 14:30:00 14:30:00 02 raquel Yi 2018-03-26 2018-03-26 Outpatient JOSH HorowitzSCHER MISCHER [id number] 14:30:00 14:30:00 Jefry Rashel Smalls 2017-10-26 2017-10-26 Out[facility] [id number] Common 14:00:00 14:00:00 [employer] [facility] [place] [facility] 2017-09-24 2017-09-24 Outpatient [facility] [id number] [facility] 14:30:00 14:30:00 01 raquel Yi 2017-08-12 2017-08-12 Outpatient [facility] [id number] Memoria 15:15:00 15:15:00 00 raquel Yi Results This patient has no known results.
--- NOTE | 2023-02-08 10:50 | RAD REPORT ---
EXAM DESCRIPTION: CT - Facial Bones W/ Mpr - 02/08/2023 10:28 am CLINICAL HISTORY: Facial injury with pain COMPARISON: None TECHNIQUE: Computed axial tomography of the face was obtained. Coronal and sagittal reconstruction w as performed. All CT scans are performed using dose optimization technique as appropriate and may include automated exposure control or mA/KV adjustment according to patient size. FINDINGS: Right cheek swelling. A fracture is not seen. A TMJ dislocation is not noted. The globes are intact. A small amount of fluid ethmoid sinus may indicate sinusitis IMPRESSION: Negative for a facial fracture.
--- NOTE | 2023-02-08 10:50 | RAD REPORT ---
EXAM DESCRIPTION: CT - Head C Spine Mpr Wo Con - 02/08/2023 10:29 am CLINICAL HISTORY: Head and neck injury status post fall. Head and neck pain COMPARISON: 2017 MRI TECHNIQUE: Computed axial tomography of the head and cervical spine was obtained. Sagittal and coronal reconstruction was performed. All CT scans are performed using dose optimization technique as appropriate and may include automated exposure control or mA/KV adjustment according to patient size. FINDINGS: Left frontal scalp hematoma. An intracranial bleed is not seen. The ventricles are normal in caliber. Moderate low-density periventricular, deep and subcortical white matter likely ischemic changes secon yuliet to small vessel disease Moderate cerebral atrophy An extra-axial fluid collection is not noted. A cervical fracture is not visualized. No dislocation is noted. Mild posterior subluxation C3 on C4 probably chronic IMPRESSION: No acute intracranial abnormality is seen. A cervical fracture is not visualized. If the patient continues to have symptoms to suggest intracranial /spinal cord/ligamentous pathology then MRI would be recommended
[2023-02-08 11:17] LABS: Albumin 3.5 g/dL (3.4-5.0); Bilirubin Total 0.6 mg/dL (0.2-1.0); Potassium 3.6 mEq/L (3.5-5.1); Protein, Total 6.9 g/dL (6.4-8.2)
[2023-02-08 11:20] LABS: Absolute Lymphocytes (CBC) 0.7 K/uL (0.7-4.9); Hematocrit 34.7 % (39.6-49.0); Lymphocytes % 9.3 % (15.3-44.8); MCV 93.1 fL (80-100); MPV 8.4 fL (7.6-11.3); Platelets 166 thou/uL (152-406); RBC Red Blood Cell Count 3.73 M/uL (4.33-5.43)
--- NOTE | 2023-02-08 11:30 | EDPHYS ---
Physician Documentation [facility] Name: Izabel Archuleta Age: 78 yrs Sex: Male : 1945 Arrival Date: 02/08/2023 Time: 10:05 Bed 2 Private MD: ED Physician Kurtis Villalobos HPI: 02/08 10:09 This 78 yrs old Male presents to ER via Unassigned with complaints of Fall ec2 Injury. 10:09 Patient arrives today for evaluation of facial trauma. Patient has a history of ec2 significant end-stage dementia, on hospice, arrives today for evaluation after multiple falls. Patient reportedly had a fall yesterday, subsequently had a fall again today and was found on the ground by the . The fall was unwitnessed, unsure of LOC, no blood thinners reported. Patient is a poor historian and history gathered from EMS due to patient's dementia.. 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 - Social history:: Smoking status: . ROS: 10:09 Constitutional: as per hpi ec2 Exam: 10:09 Constitutional: GEN: No acute distress HEENT: -Head: Left forehead contusion, right ec2 periorbital ecchymosis -Eyes: EOMI CV: regular rate LUNGS: no respiratory distress ABD: non-tender SKIN: no wounds appreciated MSK: No C/T/L spine deformities RUE w/o trauma LUE w/o trauma RLE w/o trauma LLE w/o trauma NEURO: moves all extremities equally Vital Signs: 10:08 BP 128 / 82; Pulse 57; Resp 16; Temp 98.1(O); Pulse Ox 100% on R/A; Weight 52.16 kg; hb Height 5 ft. 7 in. ; Pain 1/10; 11:30 BP 128 / 82; Pulse 52; Resp 15; Pulse Ox 98% on R/A; hb 13:30 BP 126 / 86; Pulse 55; Resp 17; Pulse Ox 99% on R/A; hb 10:08 Body Mass Index 18.01 (52.16 kg, 170.18 cm) hb 10:08 Pain Scale: Adult hb MDM: 10:08 Patient medically screened. ec2 10:09 ED course: Patient arrives today for evaluation after ground-level fall. Examination ec2 remarkable for nontoxic individual who had evidence of recent falls with contusions noted to the face. Will obtain lab work as well as CT imaging. Currently considering electrolyte disturbances, rhabdo myelitis given unknown downtime and unwitnessed fall, additionally considering intracranial brain bleed and C-spine fractures.. 10:56 Data reviewed: vital signs. ED course: EKG independently reviewed and interpreted by ec2 , shows normal sinus rhythm, rate of 58, no acute ST segment elevations, nonconcerning intervals.. 11:28 ED course: CBC is unremarkable, metabolic profile is reassuring, CK level within normal ec2 ranges. CT scan of the head and C-spine shows no acute traumatic pathology noted. CT facial bones shows no facial fractures. On reassessment patient has baseline per the in the room. Will discharge home, return precautions given. . 02/08 10:09 Order name: CBC with Diff; Complete Time: 11:28 ec2 02/08 10:09 Order name: CMP; Complete Time: 11:28 ec2 02/08 10:09 Order name: CK; Complete Time: : ec2 02/08 10:09 Order name: CT Head C Spine; Complete Time: 11: ec2 02/08 10:09 Order name: Facial Bones W/O Con CT; Complete Time: 11:28 ec2 02/08 10:09 Order name: EKG; Complete Time: 10: ec2 02/08 10:09 Order name: EKG Strip; Complete Time: 10:49 ec2 Administered Medications: No medications were administered Disposition Summary: 02/08/23 11:29 Discharge Ordered Notes: Location: Home ec2 Condition: Stable ec2 Diagnosis - Contusion of scalp ec2 Discharge Instructions: - Discharge Summary Sheet ec2 - Facial or Scalp Contusion ec2 Forms: - Medication Reconciliation Form ec2 - Thank You Letter ec2 - Antibiotic Education ec2 - Prescription Opioid Use ec2 - Patient Portal Instructions ec2 - Leadership Thank You Letter ec2 Signatures: Dispatcher Asiya Agustin RN RN hb Corral, Edwin, MD MD ec2
--- NOTE | 2023-02-08 11:30 | ER ---
Nurse's Notes [facility] Name: Izabel Archuleta Age: 78 yrs Sex: Male : 1945 Arrival Date: 02/08/2023 Time: 10:05 Bed 2 Private MD: Diagnosis: Contusion of scalp Presentation: 02/08 10:08 Chief complaint: EMS states: Found down by at [facility], hematoma noted to left hb forehead, right periorbital bruising noted from fall yesterday. Unknown LOC. Not on blood thinners. AOx1 at baseline. VS WNL, BGL 228. Coronavirus screen: At this time, the client does not indicate any symptoms associated with coronavirus-19. Ebola Screen: No symptoms or risks identified at this time. Initial Sepsis Screen: Does the patient meet any 2 criteria? No. Patient's initial sepsis screen is negative. Does the patient have a suspected source of infection? No. Patient's initial sepsis screen is negative. Risk Assessment: Do you want to hurt yourself or someone else? Patient reports no desire to harm self or others. Onset of symptoms was February 08, 2023. 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 - Social history:: Smoking status: . Screenin:46 [facility] [place] ED Fall Risk Assessment (Adult) Score/Fall Risk Level 3 or more points = High hb Risk Oriented to surroundings, Maintained a safe environment, Educated pt \T\ family on fall prevention, incl call for assistance when getting out of bed, Assessed \T\ reinforced patient's understanding of fall precautions, Hourly rounding (assess needs \T\ fall precautionary measures) done. Abuse screen: Denies threats or abuse. Denies injuries from another. Nutritional screening: No deficits noted. Tuberculosis screening: No symptoms or risk factors identified. Assessment: 10:15 General: Appears in no apparent distress. Behavior is calm, cooperative. Pain: Unable hb to use pain scale. FLACC scale score is 0 out of 10. Neuro: Level of Consciousness is awake, alert, obeys commands, confused, Oriented to person. Cardiovascular: Patient's skin is warm and dry. Respiratory: Respiratory effort is even, unlabored, Respiratory pattern is regular, symmetrical. GI: No signs and/or symptoms were reported involving the gastrointestinal system. : No signs and/or symptoms were reported regarding the genitourinary system. EENT: No signs and/or symptoms were reported regarding the EENT system. Derm: Skin is pink, warm \T\ dry. Right periorbital bruising and left forehead hematoma noted. Musculoskeletal: Reports. 11:30 Reassessment: Patient appears in no apparent distress at this time. No changes from previously documented assessment. Patient and/or family updated on plan of care and expected duration. Pain level reassessed. 11:55 Reassessment: Spoke with Emory GARAY at [facility], pt was to be discharged from their hb facility to home with hospice today, wants to take home from ER instead of back to [facility] then home, Emory will call back with arrangements to help transport home. 12:45 Reassessment: Patient appears in no apparent distress at this time. No changes from previously documented assessment. Patient and/or family updated on plan of care and expected duration. Pain level reassessed. 14:00 Reassessment: Patient appears in no apparent distress at this time. No changes from previously documented assessment. Patient and/or family updated on plan of care and expected duration. Pain level reassessed. 14:02 Reassessment: Per Emory at [facility], EMS transport in route. Vital Signs: 10:08 BP 128 / 82; Pulse 57; Resp 16; Temp 98.1(O); Pulse Ox 100% on R/A; Weight 52.16 kg; hb Height 5 ft. 7 in. ; Pain 04/08; 11:30 BP 128 / 82; Pulse 52; Resp 15; Pulse Ox 98% on R/A; hb 13:30 BP 126 / 86; Pulse 55; Resp 17; Pulse Ox 99% on R/A; hb 10:08 Body Mass Index 18.01 (52.16 kg, 170.18 cm) hb 10:08 Pain Scale: Adult hb ED Course: 10:07 Patient arrived in ED. hb 10:08 Kurtis Villalobos MD is Attending Physician. ec2 10:11 Triage completed. hb 10:15 Patient placed. hb 10:16 Asiya Turcios, RN is Primary Nurse. hb 10:30 CT Head C Spine In Process Unspecified. EDMS 10:30 Facial Bones W/O Con CT In Process Unspecified. EDMS 10:45 Inserted saline lock: 22 gauge in right forearm, using aseptic technique. Blood hb collected. 10:46 Patient has correct armband on for positive identification. Provided Education on: . hb 10:46 CMP Sent. hb 10:46 CBC with Diff Sent. hb 10:51 EKG done, by ED staff, reviewed by Kurtis Villalobos MD. em1 14:30 No provider procedures requiring assistance completed. IV discontinued, intact, hb bleeding controlled. Administered Medications: No medications were administered Medication: 10:48 VIS not applicable for this client. hb Outcome: 11:29 Discharge ordered by . ec2 14:30 Discharged to alf. hb 14:30 Condition: stable 14:30 Discharge instructions given to patient, family, Instructed on discharge instructions, follow up and referral plans. Demonstrated understanding of instructions, follow-up care, 14:31 Patient left the ED. ll1 Signatures: Dispatcher [employer] Adarsh Pineda em1 Asiya Turcios RN RN Tiffanie Howard RN RN [facility] Kurtis Villalobos MD MD ec2 Corrections: (The following items were deleted from the chart) 10:16 10:08 Chief complaint: EMS states: Found down by at [facility], hematoma noted to hb left forehead, right periorbital bruising noted from fall yesterday. Unknown LOC. AOx1 at baseline. VS WNL, BGL 228. hb
[2023-02-08 14:49] VITALS: TEMP 98.1
[2023-02-08 15:03] VITALS: BP 126/86; O2SAT 99
--- NOTE | 2023-02-11 17:34 | EKG ---
Test Date: 2023-02-08 Test Time: 10:49:28 Chair Car Attendant: JARROD MEASUREMENT RESULTS: Intervals: Rate: 58 TX: 92 QRSD: 68 QT: 402 QTc: 394 [place]: P: 36 TX: 92 QRS: 76 T: 77 INTERPRETIVE STATEMENTS: Sinus bradycardia with short TX Otherwise normal ECG Compared to ECG 05/22/2021 11:20:32 Short TX interval now present Sinus rhythm no longer present T-wave abnormality no longer present Electronically Signed On 02-11-23 17:25:25 HOSPICE PHYSICIAN by Demetrio Das
== END 2023-02-08 14:31 | disposition home or self-care (01) ==
LOC: ER 10:05
DX: S00.03XA Contusion of scalp, initial encounter (principal); G30.9 Alzheimer's disease, unspecified; F02.80 Dementia in other diseases classified elsewhere, unspecified severity, without behavioral disturbance, psychotic disturbance, mood disturbance, and anxiety; E11.9 Type 2 diabetes mellitus without complications; I10 Essential (primary) hypertension; Z88.0 Allergy status to penicillin
CPT/HCPCS: 36415; 70450; 70486; 72125; 76377; 80053; 82550; 85025; 93005; 99284